=== PATIENT | female | born 1940 | race Caucasian/White ===

== ENCOUNTER → 2016-03-30 | Outpatient (CLI) | payer OTHER | LOC: BMCIMAGING 08:25 | DX: Z12.31 Encounter for screening mammogram for malignant neoplasm of breast (principal) | CPT/HCPCS: G0202 ==

== ENCOUNTER 2017-05-26 01:46 | Inpatient (IN) | payer OTHER ==
[2017-05-26] MEDS ORDERED: NS 1,000 ML IV ONE (01:52)
--- NOTE | 2017-05-26 01:54 | EDPHY ---
H & P Time Seen by Provider: 05/26/17 01:52 HPI/ROS: HPI CHIEF COMPLAINT: Confusion HISTORY OF PRESENT ILLNESS: Patient is a 76-year-old female she presents emergency room by EMS for confusion. According to EMS she contacted her neighbor in her apartment building for help with unclear which need help with. However after the neighbor call 911 with EMS and police arrived to evaluate her the patient was outside putting her sweater over light calling at her son and calling a rock her daughter. She appeared confused and not making sense. No drug intoxication. Patient presents to the emergency room alert and oriented tells me the correct date and her with the president is and what hospital she is at however she started rambling on about her son daughter and her who apparently is . She does live alone in apartment. She states she does not take any medications. She denies any pain anywhere. She denies drug use. Past Medical History: Denies medical history Past Surgical History: Denies surgical history Social History: Lives locally, denies drugs alcohol tobacco. Family History: Noncontributory ROS REVIEW OF SYSTEMS: A comprehensive 10 point review of systems is otherwise negative aside from elements mentioned in the history of present illness. Exam Constitutional appears well nontoxic, frail, triage nursing summary reviewed, vital signs reviewed, awake/alert. Eyes normal conjunctivae and sclera, EOMI, PERRLA. HENT normal inspection, atraumatic, moist mucus membranes, no epistaxis, neck supple/ no meningismus, no raccoon eyes. Respiratory clear to auscultation bilaterally, normal breath sounds, no respiratory distress, no wheezing. Cardiovascular rate normal, regular rhythm, no murmur, no edema, distal pulses normal. Gastrointestinal soft, non-tender, no rebound, no guarding, normal bowel sounds, no distension, no pulsatile mass. Genitourinary no CVA tenderness. Musculoskeletal no midline vertebral tenderness, full range of motion, no calf swelling, no tenderness of extremities, no meningismus, good pulses, neurovascularly intact. Skin pink, warm, & dry, no rash, skin atraumatic. Neurologic rambling sometimes confused awake, alert and oriented x 3, AAOx3, moves all 4 extremities equally, motor intact, sensory intact, CN II-XII intact , normal cerebellar, normal vision, normal speech. Psychiatric normal mood/affect. Heme/Lymph/Immune no lymphadenopathy. Differential Diagnosis: Includes but is not limited to in a particular order infection, electrolyte disturbance, intracranial bleed, drug intoxication, delirium, dementia, hallucination Medical Decision Making: Plan for this patient, will workup for an acute change of mental status, CT head, blood work, troponin EKG. Re-evaluate. Check drug screen. Re-evaluation: 0215AM: Please report this patient lives alone apartment. There are no family contacts. Additionally they report that she just took in overnight flight from [facility] to [place], She had luggage tags on her luggage that confirms this according to police. EKG interpretation by me on record in [employer] system. Impression time of EKG 2:16 a.m., sinus rhythm rate of 83 no significant ischemic changes signs of cardiac arrhythmia. No ST elevation no ST depression no significant T-wave abnormalities CT head without contrast negative for acute traumatic or abnormality specifically no infarct or bleed. Called to me by Dr. Ho. 0329: Blood work reviewed no high white count. She is afebrile. However urinalysis indicates significant UTI. Urine cultures been sent. 1 g Rocephin has been given return emergency room. Plan will be for admission the hospital today for observation given her delirium and altered mental status. Most likely cause of this is her urinary tract infection. I do not feel comfortable discharging her in the middle the night home she lives alone in apartment was found outside of her apartment having hallucinations. Source: Patient, EMS Constitutional: Initial Vital Signs Temperature (C) 36.5 C 05/26/17 01:52 Blood Pressure 178/119 H 05/26/17 01:52 O2 Delivery Mode Room Air Allergies/Adverse Reactions: Sulfa (Sulfonamide Antibiotics) Allergy (Intermediate, Verified 10/06/12 16:54) Home Medications: Medication Instructions Recorded Acyclovir [Zovirax 200 mg (*)] 400 mg PO DAILY 10/06/12 Ascorbic Acid [Vitamin C 500 mg 2,000 mg PO DAILY 05/26/17 (*)] Ergocalciferol [Vitamin D2 (*)] 50,000 unit PO FR 05/26/17 Medical Decision Making - Data Points Laboratory Results: Laboratory Results 05/26/17 01:50 05/26/17 01:50 05/26/17 02:50 Urine Opiates Screen NEGATIVE ng/mL ng/mL (NEGATIVE) Urine Barbiturates NEGATIVE ng/mL ng/mL (NEGATIVE) Ur Phencyclidine Scrn NEGATIVE ng/mL ng/mL (NEGATIVE) Ur Amphetamines Screen NEGATIVE ng/mL ng/mL (NEGATIVE) U Benzodiazepines Scrn NEGATIVE ng/mL ng/mL (NEGATIVE) Urine Cocaine Screen NEGATIVE ng/mL ng/mL (NEGATIVE) U Marijuana (THC) Screen NEGATIVE ng/mL ng/mL (NEGATIVE) Medications Given: Enoxaparin Sodium (Lovenox) 40 mg SC DAILY LARISSA Stop: 11/22/17 08:59 Last Admin: 05/26/17 09:44 Dose: 40 mg Ergocalciferol (Vitamin D2) 50,000 i.unit PO FR LARISSA Stop: 11/22/17 09:29 Last Admin: 05/26/17 09:46 Dose: 50,000 i.unit Sodium Chloride (Ns) 1,000 mls @ 75 mls/hr IV CONT LARISSA Stop: 05/27/17 02:34 Last Admin: 05/26/17 13:21 Dose: 1,000 mls Discontinued Medications Sodium Chloride (Ns) 1,000 mls @ 0 mls/hr IV ONCE ONE; Wide Open PRN Reason: Protocol Stop: 05/26/17 01:53 Last Admin: 05/26/17 02:08 Dose: 1,000 mls Ceftriaxone Sodium/Dextrose (Rocephin 1 Gm (Premix)) 50 mls @ 100 mls/hr IV EDNOW ONE PRN Reason: Protocol Stop: 05/26/17 03:41 Last Admin: 05/26/17 03:31 Dose: 50 mls Departure - Departure Disposition: [facility] Inpatient Acute Clinical Impression: UTI (urinary tract infection) Qualifiers: Urinary tract infection type: acute cystitis Hematuria presence: with hematuria Qualified Code(s): N30.01 - Acute cystitis with hematuria Altered mental status Qualifiers: Altered mental status type: delirium Qualified Code(s): R41.0 - Disorientation , unspecified Condition: Fair
[2017-05-26 02:04] LABS: PLATELET COUNT 244 10^3/uL (150-400)
--- NOTE | 2017-05-26 02:19 | CPEKG ---
Heart Rate: 83 RR Interval: 723 P-R Interval: 156 QRSD Interval: 76 QT Interval: 380 QTC Interval: 447 P [place]: 30 QRS [place]: -25 T Wave [place]: 11 EKG Severity - BORDERLINE ECG - EKG Impression: SINUS RHYTHM EKG Impression: BORDERLINE LEFT AXIS DEVIATION EKG Impression: BORDERLINE T ABNORMALITIES, ANTERIOR LEADS Electronically Signed By: Ciro Velasco 30-May-2017 12:06:25
[2017-05-26] MEDS ORDERED: ONDANSETRON 4 MG/2 ML VIAL IVP PRN (03:38)
[2017-05-26] MEDS ORDERED: ONDANSETRON DISINTEGRATING 4 MG TAB PO PRN (03:38)
--- NOTE | 2017-05-26 04:15 | PDGENHP ---
History and Physical - Chief Complaint AMS - History of Present Illness 76 yo F w/ no significant PMHx presents with AMS. Patient was found today apparently hallucinating that inanimate objects were family members. She was brought to ED by EMS as a result. During my conversation the patient is generally appropriate and does recall being confused earlier. She tells me she lost her last August and has had a really difficult time with losing him after 40 years of marriage. She lives alone and continues to work in [employer] at the [employer]. She denies any symptoms of illlness including fever, dysuria, and abdominal pain. History Information - Allergies/Home Medication List Allergies/Adverse Reactions: Sulfa (Sulfonamide Antibiotics) Allergy (Intermediate, Verified 10/06/12 16:54) Home Medications: Zibrex 10/06/12 [Last Taken Unknown] I have personally reviewed and updated: family history, medical history - Past Medical History arthritis - Surgical History Additional surgical history: Pelvic surgery for pelvic organ prolapse - Family History Positive for: cancer - Social History Smoking Status: Never smoked Review of Systems Review of Systems: ROS: 10pt was reviewed & negative except for what was stated in HPI & below Physical Exam Physical Exam: Temp Pulse Resp BP Pulse Ox 36.5 C 85 18 148/93 H 95 05/26/17 02:29 05/26/17 03:34 05/26/17 03:34 05/26/17 03:34 05/26/17 03:34 Constitutional: no apparent distress, not in pain Eyes: PERRL, EOMI Ears, Nose, Mouth, Throat: moist mucous membranes, no oral mucosal ulcers Cardiovascular: regular rate and rhythym, no murmur, rub, or gallop Gastrointestinal: normoactive bowel sounds, soft, non-tender abdomen Skin: warm, normal color Musculoskeletal: full muscle strength, no muscle tenderness Neurologic: CN II-XII Intact, other (A&Ox2 (name and place)) Psychiatric: interacting appropriately, not anxious Lab Data & Imaging Review 05/26/17 01:50 05/26/17 01:50 WBC 5.38 10^3/uL (3.80-9.50) 05/26/17 01:50 RBC 3.78 10^6/uL (4.18-5.33) L 05/26/17 01:50 Hgb 12.4 g/dL (12.6-16.3) L 05/26/17 01:50 Hct 37.8 % (38.0-47.0) L 05/26/17 01:50 MCV 100.0 fL (81.5-99.8) H 05/26/17 01:50 MCH 32.8 pg (27.9-34.1) 05/26/17 01:50 MCHC 32.8 g/dL (32.4-36.7) 05/26/17 01:50 RDW 14.6 % (11.5-15.2) 05/26/17 01:50 Plt Count 244 10^3/uL (150-400) 05/26/17 01:50 MPV 8.6 fL (8.7-11.7) L 05/26/17 01:50 Neut % (Auto) 61.9 % (39.3-74.2) 05/26/17 01:50 Lymph % (Auto) 19.1 % (15.0-45.0) 05/26/17 01:50 Bent % (Auto) 13.8 % (4.5-13.0) H 05/26/17 01:50 Eos % (Auto) 4.3 % (0.6-7.6) 05/26/17 01:50 Baso % (Auto) 0.7 % (0.3-1.7) 05/26/17 01:50 Nucleat RBC Rel Count 0.0 % (0.0-0.2) 05/26/17 01:50 Absolute Neuts (auto) 3.33 10^3/uL (1.70-6.50) 05/26/17 01:50 Absolute Lymphs (auto) 1.03 10^3/uL (1.00-3.00) 05/26/17 01:50 Absolute Monos (auto) 0.74 10^3/uL (0.30-0.80) 05/26/17 01:50 Absolute Eos (auto) 0.23 10^3/uL (0.03-0.40) 05/26/17 01:50 Absolute Basos (auto) 0.04 10^3/uL (0.02-0.10) 05/26/17 01:50 Absolute Nucleated RBC 0.00 10^3/uL (0-0.01) 05/26/17 01:50 Immature Gran % 0.2 % (0.0-1.1) 05/26/17 01:50 Immature Gran # 0.01 10^3/uL (0.00-0.10) 05/26/17 01:50 Sodium 143 mEq/L (135-145) 05/26/17 01:50 Potassium 4.2 mEq/L (3.5-5.2) 05/26/17 01:50 Chloride 102 mEq/L (97-110) 05/26/17 01:50 Carbon Dioxide 28 mEq/l (22-31) 05/26/17 01:50 Anion Gap 13 mEq/L (8-16) 05/26/17 01:50 BUN 24 mg/dL (7-23) H 05/26/17 01:50 Creatinine 0.8 mg/dL (0.6-1.0) 05/26/17 01:50 Estimated GFR > 60 05/26/17 01:50 Glucose 99 mg/dL (70-100) 05/26/17 01:50 Calcium 9.1 mg/dL (8.5-10.4) 05/26/17 01:50 Troponin I < 0.012 ng/mL (0.000-0.034) 05/26/17 01:50 Urine Color YELLOW 05/26/17 02:50 Urine Appearance MODERATELY TURBID 05/26/17 02:50 Urine pH 6.0 (5.0-7.5) 05/26/17 02:50 Ur Specific [place] 1.021 (1.002-1.030) 05/26/17 02:50 Urine Protein NEGATIVE (NEGATIVE) 05/26/17 02:50 Urine Ketones TRACE (NEGATIVE) H 05/26/17 02:50 Urine Blood 1+ (NEGATIVE) H 05/26/17 02:50 Urine Nitrate POSITIVE (NEGATIVE) H 05/26/17 02:50 Urine Bilirubin NEGATIVE (NEGATIVE) 05/26/17 02:50 Urine Urobilinogen 2.0 EU (0.2-1.0) H 05/26/17 02:50 Ur Leukocyte Esterase NEGATIVE (NEGATIVE) 05/26/17 02:50 Urine RBC 1-3 /hpf (0-3) 05/26/17 02:50 Urine WBC 50-182 /hpf (0-3) H 05/26/17 02:50 Ur Epithelial Cells TRACE /lpf (NONE-1+) 05/26/17 02:50 Urine Bacteria 4+ /hpf (NONE SEEN) H 05/26/17 02:50 Hyaline Casts 1-5 /lpf (0-1) 05/26/17 02:50 Urine Mucus TRACE /lpf (NONE-1+) 05/26/17 02:50 Urine Glucose NEGATIVE (NEGATIVE) 05/26/17 02:50 Imaging Review: CT Prelim: NO BLEED MILD ATROPHY CEREBROVASCULAR ATHEROSCLEROSIS DISCUSSED WITH DR JACKSON AT 0222 Assessment & Plan Assessment: 76 yo F presents with AMS and likely UTI. Plan: 1. Acute encephalopathy - Possibly 2/2 UTI noting nitrate+ UA although patient denies symptoms. There may be some mild underlying dementia. However, patient still works and lives independently quite well. I suspect complicated bereavement may be playing a role as she lost her of 40 years in August. - Admit for observation - UTI tx as below - PT/OT evaluations - Recommend outpatient neurocognitive testing 2. Asymptomatic bacteriuria - Nitrate +, 4+ bacteria, and >50 WBCs on UA. Patient denies symptoms. - CTX 1 g qD - Follow urine cultures, d/c abx if negative Diet - Regular Code - Full Ppx - LMWH Dispo - Admit under observation status
[2017-05-26] MEDS ORDERED: ERGOCALCIFEROL 50,000 I.UNIT CAP PO SCH (09:30)
[2017-05-26] MEDS: ENOXAPARIN 40 MG/0.4 ML SYR SC SCH (09:44)
[2017-05-26] MEDS ORDERED: NS 1,000 ML IV SCH (13:15)
--- NOTE | 2017-05-26 13:20 | HOSPPROG ---
Hospitalist Progress Note Assessment/Plan: 76 yo F presents with AMS, hallucinations, and possible UTI. 1. Acute encephalopathy with Hallucinations -Etiology is unclear: Infectious vs Psych -She reports a hx of prior hallucinations -She has rapid and Tangential speech -She had active hallucinations this morning (though that the chair was her daughter who lives in [place]). No active hallucinations on my exam today 2. Bacteriuria -Denying any urinary sx's -for now cont with Rocephin, await cultures -Give additional IVF 3. Macrocytosis -normal B12, not contributing to encephalopathy -will check folate 4. HTN -not previously diagnosed -for now treat with PRN Hydralazine 5. Right Basilar Lung Nodule on CXR- incidental finding -will wait until encephalopathy better prior to obtaining a CT and further discussion Diet - Regular Code - Full Ppx - LMWH Dispo - change to inpatient. If no improvement of mentation tomorrow, consider psych consult Subjective: still with hallucinations this morning. no cp or sob. no urinary sx. pressured speech. Objective: Vital Signs Temp Pulse Resp BP Pulse Ox 36.7 C 78 18 154/84 H 92 05/26/17 11:14 05/26/17 11:14 05/26/17 11:14 05/26/17 11:14 05/26/17 11:14 05/25/17 05/26/17 05/27/17 05:59 05:59 05:59 Intake Total 1250 Balance 1250 - Physical Exam Constitutional: no apparent distress Eyes: PERRL, EOMI Ears, Nose, Mouth, Throat: moist mucous membranes Cardiovascular: regular rate and rhythym Respiratory: no respiratory distress, no rales or rhonchi, clear to auscultation Gastrointestinal: normoactive bowel sounds, No guarding Genitourinary: no bladder fullness Skin: warm Neurologic: No AAOx3 Psychiatric: encephalopathic, anxious Lymph, Heme, Immunologic: No petechiae ICD10 Worksheet Patient Problems: Problems Problem Status Onset Altered mental status Acute UTI (urinary tract infection) Acute
--- NOTE | 2017-05-26 17:46 | ASMTCMCOM ---
CM Note CM Note Notes: Pt admitted for possible urinary tract infection, altered mental status. Pt brought in by EMS, found to be hallucinating at home. Spoke with ASHLEIGH Kwong - per Elenita, pt lives alone and still works at [employer] in the [employer] department. Call received from Nicolle Wiley [phone], the pt's dghtr and MDPOA. Per Nicolle, she lives in the [place] in [place], which is 7 hrs ahead. Nicolle called for an udpate and to determine best way to provide MDPOA paperwork. Nicolle provided with 's fax number; documents to be faxed or provided by another family member corrine. Per Nicolle, the pt just returned from a 5 week stay in the [place] on Monday evening. Since her return she has been having hallucinations. The dghtr states she called the police several times this morning to do a welfare check on her mother. The police finally went to the pt's home and called EMS. Of note, the pt lost her last August (2016) and lost a son in 2015. Nicolle requesting CM list two additional emergency contacts on pt's behalf: Orestes Solitario (pt's [id number] in [place]) [phone] Zuleyma Spaulding (pt's sister in [place]) [phone] Per Nicolle, staff has permission to discuss pt's health information with both Orestes and Zuleyma Barriga. CM awaiting MDPOA paperwork. Pt's discharge needs remain unclear at this time. PT/OT evals pending. CM will continue to follow. Current Discharge Plan: To be determined Date Signed: 05/26/2017 05:45 PM Electronically Signed By:Belem Morley RN
--- NOTE | 2017-05-26 18:30 | PDMN ---
Medical Necessity Medical necessity: C/M review: Patient meets INPT criteria under [facility] M-300 Urinary tract infection: Acute and persistent encephalopathy with hallucinations of unclear etiology - infectious vs. psychiatric, bacteriuria 4 + urine bacteria and urine WBC 50-182 on urinalysis, possible Urinary tract infection, macrocytosis, await urine culture results, hypertension not previously diagnosed (admit BP 178/119, 05/26/17 07:39 BP 161/86),right basilar lung nodule on CXR- incidental finding requiring 1 L NS IV in ED, IV NS 75 ml/ hr x 1 bag, possible 05/27/2017 Psychiatric consult if no improvement in mentation, ongoing IV Ceftriaxone QD, IV Hydralazine as needed, comorbid history of prior hallucinations. MD anticipates > 2 MN LOS for ongoing med nec for eval and TX of above.
[2017-05-27] MEDS: hydrALAZINE 20 MG/ML VIAL IVP PRN ×2 (03:51→16:12)
[2017-05-27 05:39] LABS: PLATELET COUNT 231 10^3/uL (150-400)
[2017-05-27] MEDS: ASCORBIC ACID 500 MG TAB PO SCH (08:17)
[2017-05-27] MEDS: ACYCLOVIR 200 MG CAP PO SCH (08:18)
[2017-05-27] MEDS: ENOXAPARIN 40 MG/0.4 ML SYR SC SCH (08:19)
--- NOTE | 2017-05-27 15:03 | HOSPPROG ---
Hospitalist Progress Note Assessment/Plan: 76 yo F presents with AMS, hallucinations, and possible UTI. Her last reported visual hallucinations were in the morning of 05/26. She has not had any auditory hallucinations. She wants to go home but has a very poor memory or recollection of the events leading up to the hospital. She also appears to have active cognitive deficits and I am concerned with her safety at home especially as she lives alone. She has no focal neurological deficits 1. Acute encephalopathy with Hallucinations -Etiology is unclear: Infectious vs Psych vs Neuro -She reports a hx of prior hallucinations several years ago but cannot provide further details. -She had rapid and Tangential speech, this seems to be improving - No active hallucinations on my exam today 2. Bacteriuria -Denying any urinary sx's -for now cont with Rocephin, await cultures -Rocephin day 2 today. will treat for 3 days. 3. Macrocytosis -normal B12, not contributing to encephalopathy -will check folate 4. HTN -not previously diagnosed -for now treat with PRN Hydralazine 5. Right Basilar Lung Nodule on CXR- incidental finding -will wait until encephalopathy better prior to obtaining a CT and further discussion Diet - Regular Code - Full Ppx - LMWH Dispo - change to inpatient. obtain cognitive evaluation by Speech Rounded at bedside with nurse, patient, and patients brother in law. All questions and concerns addressed. Subjective: no further hallucinations. still with poor recollection of events. Objective: Vital Signs Temp Pulse Resp BP Pulse Ox 36.6 C 92 14 149/72 H 95 05/27/17 12:14 05/27/17 12:14 05/27/17 12:14 05/27/17 13:51 05/27/17 12:14 Laboratory Results 05/27/17 05:22 05/27/17 05:22 05/26/17 05/27/17 05/28/17 05:59 05:59 05:59 Intake Total 1831 Output Total 1050 Balance 781 - Physical Exam Constitutional: no apparent distress, appears nourished Eyes: PERRL, EOMI Ears, Nose, Mouth, Throat: moist mucous membranes, hearing normal Cardiovascular: regular rate and rhythym, No edema Respiratory: no respiratory distress, no rales or rhonchi, reduced air movement Gastrointestinal: normoactive bowel sounds, soft, non-tender abdomen Genitourinary: no bladder fullness Skin: warm Musculoskeletal: generalized weakness Neurologic: No AAOx3 Psychiatric: interacting appropriately, encephalopathic, anxious Lymph, Heme, Immunologic: No petechiae ICD10 Worksheet Patient Problems: Problems Problem Status Onset Altered mental status Acute UTI (urinary tract infection) Acute
[2017-05-27] MEDS: ACETAMINOPHEN 325 MG TAB PO PRN (21:12)
[2017-05-28] MEDS: ENOXAPARIN 40 MG/0.4 ML SYR SC SCH (08:27)
[2017-05-28] MEDS: ASCORBIC ACID 500 MG TAB PO SCH (08:29)
[2017-05-28] MEDS: ACYCLOVIR 200 MG CAP PO SCH (08:29)
[2017-05-28] MEDS: hydrALAZINE 20 MG/ML VIAL IVP PRN (08:30)
--- NOTE | 2017-05-28 15:39 | ASMTCMCOM ---
CM Note CM Note Notes: Pt is in progress with a cog sd and PT will eval later this PM. PT's DC needs ucnlear at this time. See prev CM note with phone numbers of family contacts. CM to follow. Date Signed: 05/28/2017 03:39 PM Electronically Signed By:Justine Prince LCSW
--- NOTE | 2017-05-28 17:33 | HOSPPROG ---
Hospitalist Progress Note Assessment/Plan: 76 yo F presents with AMS, hallucinations, and possible UTI. Her last reported visual hallucinations were in the morning of 05/26. She has not had any auditory hallucinations. She wants to go home but has a very poor memory or recollection of the events leading up to the hospital. She also appears to have active cognitive deficits and I am concerned with her safety at home especially as she lives alone. She has no focal neurological deficits. Cognitive eval is pending. PT eval is pending. 1. Acute encephalopathy with Hallucinations -Etiology is unclear: Infectious vs Psych vs Neuro -Appears to be clearing and now at baseline. -She reports a hx of prior hallucinations several years ago but cannot provide further details. -She had rapid and Tangential speech, this seems to be improving - No active hallucinations on my exam today -check TSH 2. Bacteriuria -Denying any urinary sx's -will treat with Rocephin for a total of 3 days, today is the last dose 3. Macrocytosis -normal B12, not contributing to encephalopathy -normal folate 4. HTN -not previously diagnosed -Received Hydralazine today, BP is now better. will start Lisinopril in a.m. 5. Right Basilar Lung Nodule on CXR- incidental finding -will wait until encephalopathy better prior to obtaining a CT and further discussion Diet - Regular Code - Full Ppx - LMWH Dispo - cont inpatient. obtain cognitive evaluation by Speech, this is pending. PT eval is pending as well. Rounded at bedside with nurse, patient, and patients sister in law. All questions and concerns addressed. Subjective: no active hallucinations. no cp or sob. no n/v Objective: Vital Signs Temp Pulse Resp BP Pulse Ox 36.5 C 91 15 127/69 H 95 05/28/17 15:29 05/28/17 15:29 05/28/17 15:29 05/28/17 15:29 05/28/17 15:29 Laboratory Results 05/27/17 05:22 05/27/17 05:22 05/27/17 05/28/17 05/29/17 05:59 05:59 05:59 Intake Total 1831 1100 Output Total 1050 Balance 781 1100 - Physical Exam Constitutional: no apparent distress Eyes: PERRL, EOMI Ears, Nose, Mouth, Throat: moist mucous membranes, hearing normal Cardiovascular: regular rate and rhythym, No edema Respiratory: no respiratory distress, no rales or rhonchi Gastrointestinal: normoactive bowel sounds, soft, non-tender abdomen Skin: warm Neurologic: AAOx3 Psychiatric: interacting appropriately, not anxious, not encephalopathic Lymph, Heme, Immunologic: No petechiae ICD10 Worksheet Patient Problems: Problems Problem Status Onset Altered mental status Acute UTI (urinary tract infection) Acute
[2017-05-28] MEDS: ACETAMINOPHEN 325 MG TAB PO PRN (21:24)
--- NOTE | 2017-05-29 08:41 | HOSPPROG ---
Hospitalist Progress Note Assessment/Plan: #Acute on chronic encephalopathy: resolved. Baseline MS per family -MOCA 19/30 c/w cognitive impairment. Not safe for discharge. -Will speak to daughter (CHRISTIANO) about placement -explained to patient with CM that she may need placement #E coli UTI: completed 3 days IV CTX #HTN: Lisinopril #Pulmonary nodule: stable RUL nodule since 2012. Possible RLL nodule. Rec CT outpatient #Diet: regular #Disp: cont inpatient admission for placement. Patient does not have medical capacity and at risk for subsequent harm if discharged home alone Time spent on visit 50 min bedside with pt, discussion with family, CM and therapy Subjective: "I want to go home" Objective: Vital Signs Temp Pulse Resp BP Pulse Ox 36.5 C 76 16 147/86 H 94 05/29/17 07:27 05/29/17 07:27 05/29/17 07:27 05/29/17 07:27 05/29/17 07:27 Laboratory Results 05/27/17 05:22 05/27/17 05:22 05/28/17 05/29/17 05/30/17 05:59 05:59 05:59 Intake Total 1100 450 Balance 1100 450 - Time Spent With Patient Time Spent with Patient: greater than 35 minutes Time Spent with Patient: Greater than 35 minutes spent on this patients care, greater than 50% of time spent counseling, educating, and coordinating care regarding the above mentioned plan. - Physical Exam Constitutional: no apparent distress Eyes: PERRL Ears, Nose, Mouth, Throat: moist mucous membranes Cardiovascular: regular rate and rhythym Respiratory: no respiratory distress Gastrointestinal: normoactive bowel sounds Genitourinary: no bladder fullness Skin: warm Musculoskeletal: full muscle strength Neurologic: AAOx3, CN II-XII Intact Psychiatric: No thought process linear ICD10 Worksheet Patient Problems: Problems Problem Status Onset Altered mental status Acute UTI (urinary tract infection) Acute
[2017-05-29] MEDS: LISINOPRIL 5 MG TAB PO SCH (08:50)
[2017-05-29] MEDS: ACYCLOVIR 200 MG CAP PO SCH (08:50)
[2017-05-29] MEDS: ASCORBIC ACID 500 MG TAB PO SCH (08:50)
[2017-05-29] MEDS: ENOXAPARIN 40 MG/0.4 ML SYR SC SCH (08:52)
--- NOTE | 2017-05-29 15:21 | ASMTCMCOM ---
CM Note CM Note Notes: Chart reviewed. Per speech patient cognitively impaired and not able to safely discharge independently. Spoke with her [place] Her mom had just been there for a 5 week visit. During that time Nicolle saw what she referred to as forgetful behaviour. The patient at this point is likely going to need at least SNF rehab. Referrals placed via allscripts. Plan: Dcd tp SNF/rehab when medically appropriate. Date Signed: 05/29/2017 03:20 PM Electronically Signed By:Belinda Cardoso RN
[2017-05-29] MEDS: ACETAMINOPHEN 325 MG TAB PO PRN (20:02)
[2017-05-30] MEDS: LISINOPRIL 5 MG TAB PO SCH (08:50)
[2017-05-30] MEDS: ENOXAPARIN 40 MG/0.4 ML SYR SC SCH (08:51)
[2017-05-30] MEDS: ASCORBIC ACID 500 MG TAB PO SCH (08:51)
[2017-05-30] MEDS: ACYCLOVIR 200 MG CAP PO SCH (08:51)
--- NOTE | 2017-05-30 12:48 | HOSPPROG ---
Hospitalist Progress Note Assessment/Plan: #Acute on chronic encephalopathy: -patient at baseline per family -MOCA . Patient is now agreeable to placement. Daughter (MDPOA) and brother -n-law assisting with placement - #E coli UTI: completed 3 days IV CTX #HTN: Lisinopril #Pulmonary nodule: stable RUL nodule since 2012. Possible RLL nodule. Rec CT outpatient #Diet: regular #Disp: cont inpatient admission for placement. Patient does not have medical capacity and at risk for subsequent harm if discharged home alone Subjective: no cough. Ambulating without issue Objective: Vital Signs Temp Pulse Resp BP Pulse Ox 36.7 C 76 14 145/80 H 92 05/30/17 07:49 05/30/17 07:49 05/30/17 07:49 05/30/17 07:49 05/30/17 07:49 Laboratory Results 05/27/17 05:22 05/27/17 05:22 05/29/17 05/30/17 05/31/17 05:59 05:59 05:59 Intake Total 450 700 Balance 450 700 - Physical Exam Constitutional: no apparent distress Eyes: PERRL Ears, Nose, Mouth, Throat: moist mucous membranes Cardiovascular: regular rate and rhythym Respiratory: no respiratory distress Gastrointestinal: normoactive bowel sounds, soft, non-tender abdomen Genitourinary: no bladder fullness, No kelley in urethra Neurologic: CN II-XII Intact Psychiatric: interacting appropriately, anxious, poor insight, other (difficult to keep on point) ICD10 Worksheet Patient Problems: Problems Problem Status Onset Altered mental status Acute UTI (urinary tract infection) Acute
--- NOTE | 2017-05-30 15:22 | ASMTCMCOM ---
CM Note CM Note Notes: Ashly from [facility] here today to see patient and [id number] Perry. Also,I received a phone call from patient's daughter Nicolle. I gave her some updates on patient's diagnosis and medications and ultimately transferred her phone call to Ayana, patient's RN. Per Nicolle, they have selected [facility] for SNF placement. I sent [facility] updated progress notes. Case Management will follow. Date Signed: 05/30/2017 03:21 PM Electronically Signed By:Jordyn Herbert RN
[2017-05-30] MEDS: ACETAMINOPHEN 325 MG TAB PO PRN (20:39)
[2017-05-31] MEDS: ACYCLOVIR 200 MG CAP PO SCH (10:13)
[2017-05-31] MEDS: ENOXAPARIN 40 MG/0.4 ML SYR SC SCH (10:13)
[2017-05-31] MEDS: ASCORBIC ACID 500 MG TAB PO SCH (10:13)
[2017-05-31 10:18] VITALS: BP 94/51
[2017-05-31] MEDS: LISINOPRIL 5 MG TAB PO SCH (10:18)
--- NOTE | 2017-05-31 13:21 | HOSPPROG ---
Hospitalist Progress Note Assessment/Plan: 76 yo F admitted w hallucinations, now resolved Acute on chronic encephalopathy: -patient at baseline per family -MOCA . Patient is now agreeable to placement. Daughter (MDPOA) and brother -n-law assisting with placement E coli UTI: completed 3 days IV CTX HTN: Lisinopril Pulmonary nodule: stable RUL nodule since 2012. Possible RLL nodule. Rec CT outpatient Diet: regular Dispo: to snf when bed available Subjective: anxious for dc to SNF Objective: Vital Signs Temp Pulse Resp BP Pulse Ox 36.4 C 87 18 94/51 L 96 05/31/17 07:24 05/31/17 10:17 05/31/17 07:24 05/31/17 10:18 05/31/17 07:24 Laboratory Results 05/27/17 05:22 05/27/17 05:22 05/30/17 05/31/17 06/01/17 05:59 05:59 05:59 Intake Total 700 300 Balance 700 300 ICD10 Worksheet Patient Problems: Problems Problem Status Onset Altered mental status Acute UTI (urinary tract infection) Acute
--- NOTE | 2017-05-31 14:02 | PDIAF ---
- Diagnosis Diagnosis: UTI w encephalopathy Code Status: Full Code - Medication Management Discharge Medications: Medications to Continue on Transfer Acyclovir [Zovirax 200 mg (*)] 400 mg PO DAILY 10/06/12 [Last Taken Unknown] Ascorbic Acid [Vitamin C 500 mg (*)] 2,000 mg PO DAILY 05/26/17 [Last Taken Unknown] Ergocalciferol [Vitamin D2 (*)] 50,000 unit PO FR 05/26/17 [Last Taken Unknown] Lisinopril [Zestril 5 mg (*)] 5 mg PO DAILY tab 05/31/17 [Last Taken Unknown] Discharge Medications: Refer to the Discharge Home Medication list for PRN reason. - Orders Services needed: Registered Nurse, Certified Telemedicine Physician, Physical Therapy, Occupational Therapy - Follow Up Care Current Providers and Referrals: NONE *PRIMARY CARE P,. [Unknown] - As per Instructions
--- NOTE | 2017-05-31 14:40 | ASMTCMCOM ---
CM Note CM Note Notes: Pt ready for DC today. Final orders faxed to [facility]. RN gave report. Pt's brother in law will drive pt to [facility]. Date Signed: 05/31/2017 02:39 PM Electronically Signed By:Justine Prince LCSW
--- NOTE | 2017-05-31 14:50 | ASMTLACE ---
LACE Length of stay for Answers: 4-6 days current admission Acuity / Level of Answers: Yes Care: Did the patient have an inpatient admission? Comorbidities - select Answers: Other Notes: UTI, dementia all that apply # of Emergency department Answers: 1-2 visits in the last 6 months Score: 9 Date Signed: 05/31/2017 02:49 PM Electronically Signed By:Justine Prince LCSW
--- NOTE | 2017-05-31 16:37 | GDS ---
[f rep st] DISCHARGE SUMMARY DISCHARGE DIAGNOSES: 1. Encephalopathy. 2. Urinary tract infection. Please see admission history and physical by Dr. Kiel Chong. The patient presented with vi sual hallucinations. Initial evaluation was notable for normal electrolytes, normal volume status, n egative troponin, and a positive urinalysis, which ultimately grew out E coli, consistent with urinar y tract infection. Her mental status cleared. Seen by PT and OT and felt appropriate for SNF. She was discharged there today. She completed 3 days of antibiotics for an otherwise uncomplicated urina ry tract infection. /[id number]/MODL
--- NOTE | 2017-06-02 10:03 | ASDISCHSUM ---
Discharge Information Plan Status:Has needs-TBD Medically Cleared to Leave: Discharge Date:05/31/2017 03:43 PM CM D/C Disposition: ADT D/C Disposition:Other Rehab, Not [place] Projected Discharge Date:05/31/2017 11:00 AM Transportation at D/C: Discharge Delay Reason: Follow-Up Date:05/31/2017 11:00 AM Discharge Slot: Final Diagnosis: Placement Information Referral Type:*Intermediate/SNF Referral ID:[id number] Provider Name:[facility] Address 1:[address] Address 2: City:[place] Selection Factors: State:[place] Patient Contact Information Contact Name:ZELDA Relationship:Daughter Address:[address] Work Phone: [facility] Alternate Phone: State/Zip Code:[place] [address] Email: Financial Information Financial Class:[facility] Primary Plan Desc:[facility] Primary Plan Number:[id number] Secondary Plan Desc:MEDICARE INPATIENT Secondary Plan Number:[id number] Assessment Information LACE LACE Length of stay for Answers: 4-6 days current admission Acuity / Level of Answers: Yes Care: Did the patient have an inpatient admission? Comorbidities - select Answers: Other Notes: UTI, dementia all that apply # of Emergency department Answers: 1-2 visits in the last 6 months Score: 9 Date Signed: 05/31/2017 02:49 PM Electronically Signed By:Justine Prince LCSW [facility] CM Progress Note CM Note CM Note Notes: Pt admitted for possible urinary tract infection, altered mental status. Pt brought in by EMS, found to be hallucinating at home. Spoke with ASHLEIGH Kwong - per Elenita, pt lives alone and still works at [employer] in the [employer] department. Call received from Nicolle Wiley [phone], the pt's dghtr and MDP. Per Nicolle, she lives in the [place] in [place], which is 7 hrs ahead. Nicolle called for an udpate and to determine best way to provide MDPOA paperwork. Nicolle provided with 's fax number; documents to be faxed or provided by another family member corrine. Per Nicolle, the pt just returned from a 5 week stay in the [place] on Monday evening. Since her return she has been having hallucinations. The dghtr states she called the police several times this morning to do a welfare check on her mother. The police finally went to the pt's home and called EMS. Of note, the pt lost her last August (2016) and lost a son in 2015. Nicolle requesting CM list two additional emergency contacts on pt's behalf: Orestes Solitario (pt's uzbgbhn-sl-tpo in [place]) [phone] Zuleyma Spaulding (pt's sister in [place]) [phone] Per Nicolle, staff has permission to discuss pt's health information with both Orestes and Zuleyma Barriga. CM awaiting MDPOA paperwork. Pt's discharge needs remain unclear at this time. PT/OT evals pending. CM will continue to follow. Current Discharge Plan: To be determined Date Signed: 05/26/2017 05:45 PM Electronically Signed By:Belem Morley RN [facility] Progress Note CM Note CM Note Notes: Pt is in progress with a cog sd and PT will eval later this PM. PT's DC needs ucnlear at this time. See prev CM note with phone numbers of family contacts. CM to follow. Date Signed: 05/28/2017 03:39 PM Electronically Signed By:Justine Prince LCSW [facility] CM Progress Note CM Note CM Note Notes: Chart reviewed. Per speech patient cognitively impaired and not able to safely discharge independently. Spoke with her [place] Her mom had just been there for a 5 week visit. During that time Nicolle saw what she referred to as forgetful behaviour. The patient at this point is likely going to need at least SNF rehab. Referrals placed via allscripts. Plan: Dcd tp SNF/rehab when medically appropriate. Date Signed: 05/29/2017 03:20 PM Electronically Signed By:Belinda Cardoso RN [facility] CM Progress Note CM Note CM Note Notes: Ashly from [facility] here today to see patient and [id number] Perry. Also,I received a phone call from patient's daughter Nicolle. I gave her some updates on patient's diagnosis and medications and ultimately transferred her phone call to Ayana patient's RN. Per Nicolle, they have selected [facility] for SNF placement. I sent [facility] updated progress notes. Case Management will follow. Date Signed: 05/30/2017 03:21 PM Electronically Signed By:Jordyn Herbert RN [facility] CM Progress Note CM Note CM Note Notes: Pt ready for DC today. Final orders faxed to [facility]. RN gave report. Pt's brother in law will drive pt to [facility]. Date Signed: 05/31/2017 02:39 PM Electronically Signed By:Jsutine Prince LCSW Intervention Information Intervention Type:*IM-Signed Date of Service:05/31/2017 02:45 PM Patient Type:Inpatient Staff Member:Maggie Emanuel Hours: Discipline: Severity: Comment:
== END 2017-05-31 15:43 | DRG 689 ==
LOC: EDUNIT# → F1N 05:19 → OBSVTOIN 13:22
PROVIDERS: ADMIT Student in an Organized Health Care Education/Training Program; ATTEND Student in an Organized Health Care Education/Training Program
DX: N39.0 Urinary tract infection, site not specified (principal); B96.20 Unspecified Escherichia coli [E. coli] as the cause of diseases classified elsewhere; G93.40 Encephalopathy, unspecified
CPT/HCPCS: 80307; 82607-90; 92507-GN; 92523-GN; 96374; 97116-GP; 97161-GP; 97165-GO; 97530-GO; 97535-GO; G0480; G0515-GN; G8978-GP-CK; G8979-GP-CI; G8987-GO-CJ; G8988-GO-CI; G9168-GN-CK; G9169-GN-CI; J0360; J0696; J1650

== ENCOUNTER → 2017-06-21 | Outpatient (CLI) | payer OTHER | LOC: BMCIMAGING 08:19 | PROVIDERS: ATTEND Family Medicine | DX: Z12.31 Encounter for screening mammogram for malignant neoplasm of breast (principal) ==

== ENCOUNTER → 2017-06-30 | Outpatient (CLI) | payer OTHER | LOC: FIMAGING 19:03 | PROVIDERS: ATTEND Family Medicine | DX: M48.56XA Collapsed vertebra, not elsewhere classified, lumbar region, initial encounter for fracture (principal); M43.16 Spondylolisthesis, lumbar region; M41.86 Other forms of scoliosis, lumbar region; G31.84 Mild cognitive impairment of uncertain or unknown etiology ==

== ENCOUNTER → 2017-07-06 | Outpatient (CLI) | payer OTHER | LOC: FIMAGING 10:22 | PROVIDERS: ATTEND Family Medicine | DX: Z13.820 Encounter for screening for osteoporosis (principal); Z78.0 Asymptomatic menopausal state; M81.0 Age-related osteoporosis without current pathological fracture ==

== ENCOUNTER → 2017-09-06 | Outpatient (CLI) | payer OTHER | LOC: FIMAGING 11:47 | PROVIDERS: ATTEND Family Medicine | DX: M79.672 Pain in left foot (principal); S82.115A Nondisplaced fracture of left tibial spine, initial encounter for closed fracture; Z87.81 Personal history of (healed) traumatic fracture ==

== ENCOUNTER → 2017-10-20 | Outpatient (CLI) | payer OTHER | LOC: FIMAGING 10:13 | PROVIDERS: ATTEND Physician Assistant | DX: S82.102 Unspecified fracture of upper end of left tibia (principal) ==

== ENCOUNTER 2018-04-05 10:36 | Inpatient (IN) | payer OTHER ==
--- NOTE | 2018-04-05 10:56 | EDPHY ---
General Time Seen by Provider: 04/05/18 10:45 Narrative: CLINICAL IMPRESSION: Acute, closed, displaced left femur fracture ASSESSMENT/PLAN: Very pleasant 77-year-old female presents to the emergency department after a ground level fall today. Patient did not hit her head, reports no headache, altered mental status, chest pain or shortness of breath. She has obvious swelling and deformity to left knee with radiology findings consistent for a closed, comminuted, displaced distal femur fracture. She has intact distal neurovascular exam. Patient received IV analgesics in the leg was placed in a straight leg knee immobilizer. I discussed with Dr. Chen who will plan to take the patient to the operating room later today. She was kept NPO. Routine preop labs EKG and chest x-ray ordered. Hospitalist consult requested. Pain controlled well in the ED. Patient admitted pending surgery. Discussed with Dr. Hall. DIFFERENTIAL DX: Differential includes but not limited to acute fracture, strain/sprain, joint dislocation, soft tissue contusion ED PROCEDURES: Procedure: Splint placement. A straight leg knee immobilizer splint was applied to left leg by senior technical support analyst, supervised by myself. After application of the splint I returned and re- examined the patient. The splint was adequately immobilizing the joint and distal to the splint the patient's circulation and sensation was intact. ED COURSE: 10:45 a.m.:. Patient seen and assessed by myself at EMS arrival. 11:00 a.m.: Preliminary review of x-ray show a displaced comminuted distal femur fracture. Patient last ate at 10:00 a.m., eggs an old male. I instructed her to keep NPO. IV will be placed. She is requesting analgesics. I will contact Orthopedics, Dr Chen paged. Probable surgical intervention later today. Will apply knee immobilizer when pain controlled. 11:30 a.m.. Case discussed with Dr. Gustavo. He will admit the patient primarily. Knee was placed in a straight leg knee immobilizer by myself. Patient tolerated well. Remains neurovascularly intact. Remain NPO for surgery probable 4-5 p.m. Tonight. CHIEF COMPLAINT: Acute left knee pain HPI: 77-year-old female presents to the emergency department from [facility] by ambulance after she had a ground level fall this morning. Patient reports she was making the bed when she slipped and fell on her left knee. She did not strike the left hip, chest, head, and reports no headache, dizziness, vertigo, chest wall pain or any other injury. She reports a prior left patellar fracture, last fall 2017, that did not require surgical intervention and was followed by Ortho in [place]. She normally does not ambulate with a cane or walker. She is unable to bear weight on the left leg. She reports no left hip, lower leg, ankle or foot pain. No reported loss of sensation to the lower leg. She does have a history of osteoporosis. She is not anticoagulated. 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 Neurological: No sensory loss or weakness. PHYSICAL EXAM: General Appearance: Alert, oriented, appears uncomfortable, appropriate for age , cooperative, NAD, well hydrated, non-toxic appearing, hypertensive, no hypoxia. Cardiac: Regular rate and rhythm, no murmurs or gallops Respiratory: Clear to auscultation bilaterally, no wheezes rhonchi or rales. No reproducible chest wall or rib pain. Neurological: Alert and oriented x 3, normal sensation and strength of extremities Skin: Warm, dry, no rashes, no nodules on palpation. Musculoskeletal: Obvious swelling and deformity noted to left knee which is held in slight flexion and external rotation. Superficial abrasion noted to the superior aspect of the distal knee with no evidence of open fracture. Pedal and posterior tibialis pulses intact. Normal sensation to lower extremity. No reproducible pain, swelling or deformity to ankle, tib-fib, or hip. MEDICAL DECISION MAKING: Patient was seen independently. Secondary supervising physician at time of evaluation was Dr. Hall. Diagnosis: Closed, displaced, comminuted distal left femur fracture. New, requires workup Summary: See assessment and plan for summary of ED visit Independent visualization of images, tracing, or specimens yes. Discussed patient with another provider: Dr. Hall, Dr. Chen, hospitalist Patient Progress: Stable for admission. - Diagnostics Imaging Results: Imaging Impressions Knee X-Ray 04/05/18 10:43 Impression: Comminuted intra-articular fracture of the distal femur with a vertical fracture extending from the metaphysis to the articular surface of the distal femur, with posterior displacement and angulation. Chest X-Ray 04/05/18 11:08 Impression: No acute findings in the chest. - History Smoking Status: Never smoked - Objective Vital Signs: Initial Vital Signs Temperature (C) 36.5 C 04/05/18 10:43 Heart Rate 70 04/05/18 10:43 Respiratory Rate 18 04/05/18 10:43 Blood Pressure 159/99 H 04/05/18 10:43 O2 Sat (%) 97 04/05/18 10:43 O2 Delivery Mode Room Air Allergies/Adverse Reactions: Sulfa (Sulfonamide Antibiotics) Allergy (Intermediate, Verified 04/05/18 10:43) Home Medications: Medication Instructions Recorded Acyclovir [Zovirax 200 mg (*)] 400 mg PO DAILY 10/06/12 Alendronate Sodium [Fosamax 70 MG 70 mg PO MO@0700 04/05/18 (*)] Ascorbic Acid [Vitamin C 500 mg 2,000 mg PO DAILY 04/05/18 (*)] Cholecalciferol Vit D3 [Vitamin D3 50,000 unit PO FR 04/05/18 (*)] Herbals/Supplements -Info Only 1 ea PO DAILY 04/05/18 Loperamide HCl [Imodium 2 mg (*)] 2 mg PO PRN PRN 04/05/18 Potassium Cl [Klor-Con 20 meq (*)] 20 meq PO DAILY 04/05/18 Sertraline HCl [Zoloft 50mg (*)] 50 mg PO HS 04/05/18 Laboratory Results: Laboratory Results 04/05/18 11:25 04/05/18 11:25 04/05/18 04/05/18 11:25 11:25 WBC 7.09 10^3/uL 10^3/uL (3.80-9.50) RBC 3.83 10^6/uL L 10^6/uL (4.18-5.33) Hgb 12.6 g/dL g/dL (12.6-16.3) Hct 39.2 % % (38.0-47.0) MCV 102.3 fL H fL (81.5-99.8) MCH 32.9 pg pg (27.9-34.1) MCHC 32.1 g/dL L g/dL (32.4-36.7) RDW 13.9 % % (11.5-15.2) Plt Count 276 10^3/uL 10^3/uL (150-400) MPV 8.6 fL L fL (8.7-11.7) Neut % (Auto) 80.2 % H % (39.3-74.2) Lymph % (Auto) 11.1 % L % (15.0-45.0) [place] % (Auto) 7.3 % % (4.5-13.0) Eos % (Auto) 0.8 % % (0.6-7.6) Baso % (Auto) 0.3 % % (0.3-1.7) Nucleat RBC Rel Count 0.0 % % (0.0-0.2) Absolute Neuts (auto) 5.68 10^3/uL 10^3/uL (1.70-6.50) Absolute Lymphs (auto) 0.79 10^3/uL L 10^3/uL (1.00-3.00) Absolute Monos (auto) 0.52 10^3/uL 10^3/uL (0.30-0.80) Absolute Eos (auto) 0.06 10^3/uL 10^3/uL (0.03-0.40) Absolute Basos (auto) 0.02 10^3/uL 10^3/uL (0.02-0.10) Absolute Nucleated RBC 0.00 10^3/uL 10^3/uL (0-0.01) Immature Gran % 0.3 % % (0.0-1.1) Immature Gran # 0.02 10^3/uL 10^3/uL (0.00-0.10) Sodium 134 mEq/L L mEq/L (135-145) Potassium 4.5 mEq/L mEq/L (3.5-5.2) Chloride 106 mEq/L mEq/L (97-110) Carbon Dioxide 22 mEq/l mEq/l (22-31) Anion Gap 6 mEq/L mEq/L (6-14) BUN 18 mg/dL mg/dL (7-23) Creatinine 0.7 mg/dL mg/dL (0.6-1.0) Estimated GFR > 60 Glucose 91 mg/dL mg/dL (70-100) Calcium 8.6 mg/dL mg/dL (8.5-10.4) Medications Given: Hydromorphone HCl (Dilaudid) 0.2 - 0.4 mg IVP Q1HR PRN PRN Reason: Pain, Severe Unable to Take PO Stop: 04/15/18 14:08 Last Admin: 04/05/18 15:21 Dose: 0.4 mg Ondansetron HCl (Zofran) 4 mg IVP Q4HRS PRN PRN Reason: Nausea/Vomiting, Can't Take PO Stop: 10/02/18 15:47 Last Admin: 04/05/18 15:54 Dose: 4 mg Discontinued Medications Hydromorphone HCl (Dilaudid) 0.5 mg IVP EDNOW ONE Stop: 04/05/18 11:06 Last Admin: 04/05/18 11:30 Dose: 0.5 mg Hydromorphone HCl (Dilaudid) 0.5 mg IVP EDNOW ONE Stop: 04/05/18 11:34 Last Admin: 04/05/18 11:34 Dose: 0.5 mg Sodium Chloride (Ns) 1,000 mls @ 0 mls/hr IV EDNOW ONE; Wide Open PRN Reason: Protocol Stop: 04/05/18 11:48 Last Admin: 04/05/18 11:55 Dose: 1,000 mls Departure - Departure Disposition: [facility] Inpatient Acute Clinical Impression: Femur fracture, left Qualifiers: Encounter type: initial encounter Femur location: distal Fracture type: closed Fracture morphology: other fracture Qualified Code(s): S72.492A - Other fracture of lower end of left femur, initial encounter for closed fracture Condition: Good
[2018-04-05] MEDS ORDERED: HYDROmorphONE/DILAUDID 2 MG/ML INJ IVP ONE ×2 (11:05→11:33)
[2018-04-05 11:42] LABS: PLATELET COUNT 276 10^3/uL (150-400)
[2018-04-05] MEDS ORDERED: NS 1,000 ML IV ONE (11:47)
[2018-04-05] MEDS: HYDROmorphONE/DILAUDID 1 MG/ML INJ IVP PRN ×3 (14:18→17:33)
--- NOTE | 2018-04-05 15:43 | PDMN ---
Medical Necessity Medical necessity: MC yr old F pt presents after a fall -unable to bear weight- found to have displaced comminuted distal femur fx- ( sgy pend- poss.- S470 femur fx , shaft internal fixation- 2 days )
[2018-04-05] MEDS ORDERED: ONDANSETRON 4 MG/2 ML VIAL IVP PRN ×3 (15:48→21:44)
[2018-04-05] MEDS ORDERED: HYDROmorphONE/DILAUDID 2 MG/ML INJ ONE (17:30)
--- NOTE | 2018-04-05 17:33 | PDANEPAE ---
ANE History of Present Illness L distal femur ORIF ANE Past Medical History - Pulmonary History Hx Oxygen in Use at Home: No Hx Sleep Apnea: No Sleep Apnea Screening Result - Last Documented: Negative - Endocrine History Hx Diabetes: No - Other Health History Other Health History: Erythema multiforme - infection related ANE Review of Systems Review of systems is: negative Review of Systems: - Exercise capacity Exercise capacity: >=4 METS ANE Patient History - Allergies Allergies/Adverse Reactions: Sulfa (Sulfonamide Antibiotics) Allergy (Intermediate, Verified 04/05/18 10:43) - Home Medications Home medications: home medication list seen and reviewed Home Medications: Acyclovir [Zovirax 200 mg (*)] 400 mg PO DAILY 10/06/12 [Last Taken 04/05/18] Alendronate Sodium [Fosamax 70 MG (*)] 70 mg PO MO@0700 04/05/18 [Last Taken ] Ascorbic Acid [Vitamin C 500 mg (*)] 2,000 mg PO DAILY 04/05/18 [Last Taken ] Cholecalciferol Vit D3 [Vitamin D3 (*)] 50,000 unit PO FR 04/05/18 [Last Taken 03/30/17] Herbals/Supplements -Info Only 1 ea PO DAILY 04/05/18 [Last Taken Unknown] Loperamide HCl [Imodium 2 mg (*)] 2 mg PO PRN PRN 04/05/18 [Last Taken Unknown] Potassium Cl [Klor-Con 20 meq (*)] 20 meq PO DAILY 04/05/18 [Last Taken 04/05/18 ] Sertraline HCl [Zoloft 50mg (*)] 50 mg PO HS 04/05/18 [Last Taken 04/04/18] - NPO status NPO Since - Liquids (Date): 04/05/18 NPO Since - Liquids (Time): 10:00 NPO Since - Solids (Date): 04/05/18 NPO Since - Solids (Time): 10:00 - Anes Hx Anes Hx: no prior problems - Smoking Hx Smoking Status: Never smoked - Family Anes Hx Family Anes Hx: none ANE Labs/Vital Signs - Labs Result Diagrams: 04/05/18 11:25 04/05/18 11:25 - Vital Signs Vital Signs: reviewed preoperatively; see RN documention for details Blood Pressure: 115/112 Heart Rate: 93 Respiratory Rate: 15 O2 Sat (%): 98 Height: 172.72 cm Weight: 63.5 kg ANE Physical Exam - Airway Neck exam: FROM Mallampati Score: Class 3 Mouth exam: normal dental/mouth exam - Pulmonary Pulmonary: no respiratory distress - Cardiovascular Cardiovascular: regular rate and rhythym - ASA Status ASA Status: II ANE Anesthesia Plan Anesthesia Plan: GA w LMA
[2018-04-05] MEDS ORDERED: BACITRACIN 50,000 UNITS/10 ML SYR IRR ONE (17:54)
[2018-04-05] MEDS ORDERED: POLYMYXIN B SULFATE 500,000 UNIT/10 ML SYR IRR ONE (17:54)
[2018-04-05] MEDS ORDERED: BUPIVACAINE 0.5% 30 ML SDV ONE (17:54)
[2018-04-05] MEDS ORDERED: DEXAMETHASONE 4 MG/ML VIAL ONE (18:05)
[2018-04-05] MEDS ORDERED: LIDOCAINE 2% 100 MG/5 ML SYR ONE (18:05)
[2018-04-05] MEDS ORDERED: ONDANSETRON 4 MG/2 ML VIAL ONE (18:05)
[2018-04-05] MEDS ORDERED: PROPOFOL 200 MG/20 ML VIAL ONE (18:06)
[2018-04-05] MEDS ORDERED: fentaNYL 100 MCG/2 ML INJ ONE ×2 (18:06→20:51)
--- NOTE | 2018-04-05 18:12 | PDCONSULT ---
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 She says that she tripped and stepped wrong with her leg foot while making her bed this morning. She landed on her left knee and had immediate severe pain. She was unable to bear weight on her left knee and so came to the emergency room. Denied hitting her head or any loss of consciousness. She denied any prodromal symptoms or syncopal like symptoms. She does not have any numbness or tingling in her left leg and denies any weakness. She did note that she had a previous patellar fracture that did not require surgical intervention. Past medical history Osteoporosis Depression Erythema multiform HSV Past surgical history Hysterectomy Social history Does not smoke does not drink does not use drugs Family history Non pertinent Medication allergies Sulfa Current medications Acyclovir 40 mg daily Alendronate Vitamin-D 25110 units Imodium as needed Zoloft Current vitals Blood pressure 139/78 Heart rate 81 Respirations 18 Oxygen saturation 90% on room air Oral temperature 36.8 degrees C Examination General-well nourished white female in no acute distress HEENT-pupils equal round reactive to light and accommodation, mucous membranes moist pink and acyanotic Lungs-clear to auscultation bilaterally Cardiovascular-regular rhythm and rate with no murmurs rubs or gallops Abdomen-soft nondistended nontender in all 4 quadrants positive bowel sounds no guarding or rebound no organomegaly Extremities no clubbing cyanosis edema or calf pain, she has swelling and pain with any manipulation of her left knee Skin-no rashes or ecchymosis Neuro-cranial nerves 2-12 grossly intact no focal neurological deficits Psych-mood and affect are appropriate Assessment plan 77-year-old female with past medical history of osteoporosis depression admitted after suffering a mechanical fall with a fracture of her distal left femur Left distal femur fracture- management per Orthopedic surgery Osteoporosis- on bisphosphonate at home. Depression- on sertraline for this. Should be fine to continue hsv- on acyclovir 400 mg daily. continue ppx-SCDs, heparin per Ortho Fluids- would give gentle fluids after midnight Electrolytes- within normal limits Nutrition- regular diet with NPO after midnight Cor -full Dispo- inpatient for left distal femur fracture
[2018-04-05] MEDS ORDERED: ROCURONIUM 50 MG/5 ML VIAL ONE ×2 (18:39→19:54)
--- NOTE | 2018-04-05 18:43 | PDHPUP ---
History & Physical Update H&P update statement: This history and physical update is based on an assessment of the patient which was completed after admission or registration (within 24 hours), but prior to the surgery/procedure. H&P update: H&P reviewed & patient examined, no change in patient's condition since H&P completed
--- NOTE | 2018-04-05 18:44 | PDGENHP ---
History & Physical Chief Complaint: l thigh pain History of Present Illness: fall at home. pain and deformity of thigh Pertinent Past, Social, Family History: osteoporosis Relevant Physical Exam: foot NVI. pain to movement. xray = comminuted distal femur fracture with poor bone quality Cardiorespiratory Assessment: cta. rrr. soft and nt
[2018-04-05] MEDS ORDERED: ceFAZolin 1 GM VIAL ONE ×2 (19:00)
[2018-04-05] MEDS ORDERED: SUGAMMADEX SODIUM 200 MG/2 ML VIAL IVP ONE (21:18)
[2018-04-05] MEDS ORDERED: LACTULOSE 20 GM/30 ML UDCUP PO PRN (21:28)
[2018-04-05] MEDS ORDERED: MAGNESIUM HYDROXIDE 30 ML UDCUP PO PRN (21:28)
[2018-04-05] MEDS ORDERED: CYCLOBENZAPRINE 10 MG TAB PO PRN (21:28)
[2018-04-05] MEDS ORDERED: oxyCODONE IR 5 MG TAB PO PRN ×2 (21:28→21:44)
[2018-04-05] MEDS ORDERED: DIPHENOXYLATE/ATROPINE LOMOTIL 1 TAB PO PRN (21:28)
[2018-04-05] MEDS ORDERED: TEMAZEPAM 15 MG CAP PO PRN (21:28)
[2018-04-05] MEDS ORDERED: ONDANSETRON DISINTEGRATING 4 MG TAB PO PRN (21:28)
[2018-04-05] MEDS ORDERED: PROMETHAZINE HCL 25 MG/ML INJ IVP PRN (21:28)
[2018-04-05] MEDS ORDERED: TAPENTADOL HCL 50 MG TAB PO PRN (21:28)
[2018-04-05] MEDS ORDERED: diphenhydrAMINE 25 MG CAP PO PRN (21:28)
[2018-04-05] MEDS ORDERED: PROMETHAZINE HCL 25 MG SUPPR PR PRN (21:28)
[2018-04-05] MEDS ORDERED: BISACODYL 10 MG SUPP PR PRN (21:28)
[2018-04-05] MEDS ORDERED: POLYETHYLENE GLYCOL 3350 17 GM PKT PO PRN (21:28)
[2018-04-05] MEDS ORDERED: METOCLOPRAMIDE 10 MG/2 ML VIAL IVP PRN (21:28)
--- NOTE | 2018-04-05 21:28 | POSTOPPROG ---
Post Op Note Date of Operation: 04/05/18 Surgeon: Margarita Chen Tiger Machine Operator: coltrain Anesthesia: GET(General Endotracheal) Pre-op Diagnosis: l distal femur fx Procedure: orif l dist femur with fluoro Inf/Abcess present in the surg proc area at time of surgery?: No Depth: Deep Incisional (Fascial) EBL: 100-500
[2018-04-05] MEDS ORDERED: LR 1,000 ML IV SCH (21:30)
[2018-04-05] MEDS ORDERED: LOPERAMIDE HCL 2 MG CAP PO PRN (21:32)
[2018-04-05] MEDS ORDERED: LABETALOL HCL 20 MG/4 ML INJ IVP PRN (21:44)
[2018-04-05] MEDS ORDERED: NALOXONE HCL 0.4 MG/ML INJ IVP PRN (21:44)
[2018-04-05] MEDS ORDERED: HYDROmorphONE/DILAUDID 2 MG/ML INJ IVP PRN (21:44)
[2018-04-05] MEDS ORDERED: fentaNYL 100 MCG/2 ML INJ IVP PRN (21:44)
--- NOTE | 2018-04-05 21:46 | POSTANESTH ---
Post Anesthetic Evaluation Cardiovascular Status: Similar to Pre-Op Cond Respiratory Status: Normal, Stable, Similar to Pre-op Cond. Level of Consciousness/Mental Status: Can Participate in Eval, Moderately Sleepy Pain Control: Adequate, Prn Tx Ordered Nausea/Vomiting Control: Adequate, Prn Tx Ordered Complications Possibly Related to Anesthesia: None Noted
[2018-04-05] MEDS: ACETAMINOPHEN 325 MG TAB PO SCH (23:27)
[2018-04-05] MEDS: FAMOTIDINE 20 MG TAB PO SCH (23:27)
[2018-04-05] MEDS: SERTRALINE HCL 50 MG TAB PO SCH (23:27)
[2018-04-05] MEDS: traMADol 50 MG TAB PO SCH (23:28)
--- NOTE | 2018-04-06 03:22 | GHP ---
[f rep st] HISTORY AND PHYSICAL DATE OF ADMISSION: 04/05/2018 CURRENT COMPLAINT: Left leg pain. HISTORY OF PRESENT ILLNESS: The patient is a 77-year-old female who fell while straightening her bed . She misstepped, landed on the floor directly onto her knee, had pain and deformity, was brought to the emergency room and diagnosed with a comminuted distal femur fracture. She was admitted to the [facility] [address] for formal fixation as soon as her n.p.o. status allowed. PAST MEDICAL HISTORY: Significant for osteoporosis. PRIOR SURGERY: Includes hysterectomy and bladder surgery. MEDICATIONS: Include Fosamax, multivitamins, as well as acyclovir and sertraline. ALLERGIES: Include sulfa medications. PHYSICAL EXAMINATION: HEENT: The patient's pupils equal, round, and reactive to light. CHEST: Ned ar to auscultation. HEART: Regular rate and rhythm. ABDOMEN: Soft and nontender. She is grossly neurologically intact to the dorsal, lateral, and plantar portions of the foot with EHL and FHL remai marta intact. Motion through the left leg causes pain. X-ray of the distal femur revealed a comminut ed fracture of the distal femur. ASSESSMENT AND PLAN: Patient is status post left distal femur fracture. Patient will be brought to the operating room as soon as her n.p.o. status allows her to be safely operated upon. /[id number]/MODL
--- NOTE | 2018-04-06 03:37 | GOP ---
[f rep st] OPERATIVE REPORT DATE OF OPERATION: SURGEON: Margarita Chen MD DIAMOND SIZER: Venu Ho, Certified SA, whose presence was medically necessary. ANESTHESIA: Endotracheal intubation. PREOPERATIVE DIAGNOSIS: Left comminuted distal femur fracture. POSTOPERATIVE DIAGNOSIS: Left comminuted distal femur fracture. PROCEDURE PERFORMED: Left distal femur open reduction/internal fixation with fluoroscopy. FINDINGS: INDICATIONS: This is a 77-year-old female, who fell at her home earlier today, was brought to the em ergency room, and diagnosed with a comminuted distal femur fracture. She was brought to the operatin g room as soon as her n.p.o. Status allowed her to be safely operate upon. DESCRIPTION OF PROCEDURE: Patient was brought to the operating room after the left side had been huber ntified as the correct side by the patient, nurse, and physician. Once in the operating room, she wa s placed under general anesthesia using endotracheal intubation. Once asleep, she was placed on a Ja [employer] table with a hip bump in order to gain access to the lateral portion of the thigh. The left lo wer extremity was sterilely prepped and draped in the usual fashion using GSI solution. Once prepped and draped, incision was made from just below the tibial joint line laterally up to the proximal third of her thigh with sharp dissection carried down through the skin and subcutaneous laye rs. Bleeding was controlled using electrocautery. The ITB TFL complex was incised in line with its fibers in order to gain access as well as the fascia overlying the vastus lateralis. Blunt dissection was then carried from the distal femur proximally, lifting up the vastus lateralis. An abundant amount of soft tissue dissection had been done by the actual fracture fragments themselv es. The wound was thoroughly irrigated with antibiotic solution in order to remove hematoma and smal l bits of bone. First priority was to get the condyles back together, therefore a large reduction clamp was placed on the medial and lateral portions of the condyle. A closed reduction was performed. A clamp was put into place and multiple K-wires were put in place in order to maintain rotational control as well as compression. The distal condylar fragments were then able to be reduced onto the rest of the femoral shaft. There was a severe amount of comminution on the medial portion of the knee so the reduction had to be based entirely on the lateral cortex. An 8-hole [employer] distal femoral left plate was put into place and noted to fit against the bone well . A single lag screw was placed through the center of the distal portion of the plate, catching the opposite condyle. Once in place and getting good compression across the condyle, several locking scr ews were then placed into the distal portion of the femoral plate in order to gain good purchase and good control of the bicondylar portion of the fracture. Fluoroscopy was used to ensure proper positioning of the screws as well as good reduction of the plat e onto the shaft of the femur. A single bicortical screw was placed in an offset hole in order to ga in compression through the fracture site. Once its position was checked, 6 other locking holes were filled in the 8 hole plate to gain good purchase onto the bone of the femur. Once in place, fluoroscopy was again used to ensure proper positioning of the plate and the screws douglas th in AP and lateral projections. Films were taken. The wound was then again thoroughly irrigated with antibiotic solution and was closed in layers to in clude 0 Vicryl suture for the fascial layers, 2-0 Vicryl suture for the subcutaneous layers, and stap les for the skin. The medial wound was closed with 2-0 Vicryl suture and tan. The wounds were t hen dressed with Xeroform, 4 x 4, and Tegaderm. The patient was completely undraped in the operating room. She was woken up, extubated, transferred onto a stretcher. A long-leg immobilizer locked at 0 degree s was placed on her left lower extremity. She was sent to the recovery room in good condition. /[id number]/MODL
[2018-04-06] MEDS: ceFAZolin 2 GM/DEXTROSE 100 ML IV SCH ×2 (04:01→12:46)
[2018-04-06] MEDS: ACETAMINOPHEN 325 MG TAB PO SCH ×3 (06:01→17:49)
[2018-04-06] MEDS: traMADol 50 MG TAB PO SCH ×3 (06:02→17:49)
[2018-04-06] MEDS ORDERED: CHOLECALCIFEROL VIT D3 50,000 UNIT CAP PO SCH (09:00)
[2018-04-06] MEDS: FAMOTIDINE 20 MG TAB PO SCH ×2 (09:56→20:40)
[2018-04-06] MEDS: ASCORBIC ACID 500 MG TAB PO SCH (09:56)
[2018-04-06] MEDS: SENNOSIDES/DOCUSATE SODIUM TAB PO SCH ×2 (09:56→20:40)
[2018-04-06] MEDS: RIVAROXABAN 10 MG TAB PO SCH (09:56)
[2018-04-06] MEDS: ACYCLOVIR 400 MG TAB PO SCH (09:56)
[2018-04-06] MEDS: POTASSIUM CL 20 MEQ TAB PO SCH (09:56)
--- NOTE | 2018-04-06 15:43 | ASMTCMCOM ---
CM Note CM Note Notes: Pt has L femur fx after fall at home which [place]. Pt has family bedside, pt dghtr/CHRISTIANO Avelina ([id number]) resides in the [place]. PT/OT rec SNF. Pt dghtr reports it is ok to call her at anytime, no matter the time difference. Pt dghtr requests referral to [facility] where pt has been before and had a better experience then [facility]. Referral sent in [employer]. to [facility] who will need [employer] insurance auth. D/c plan of care: SNF Date Signed: 04/06/2018 03:42 PM Electronically Signed By:LEO Gaston
--- NOTE | 2018-04-06 17:00 | HOSPPROG ---
Hospitalist Progress Note Assessment/Plan: 77-year-old female with past medical history of osteoporosis and depression admitted after suffering a mechanical fall with a fracture of her distal left femur Left distal femur fracture- management per Orthopedic surgery, now post op day 1. pain well controlled. Osteoporosis- on bisphosphonate at home. -continue vitamin D and calcium Anemia- new today and presumed to be blood loss secondary to surgery. Repeat H/ H in am. Depression- on sertraline for this. 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 continue ppx-SCDs, heparin per Ortho Fluids- would give gentle fluids after midnight Electrolytes- within normal limits Nutrition- regular diet with NPO after midnight Cor -full Dispo- inpatient for left distal femur fracture Subjective: pain adequately controlled. no NV or other complaints. Objective: Vital Signs Temp Pulse Resp BP Pulse Ox 36.7 C 101 H 14 118/64 92 04/06/18 15:56 04/06/18 15:56 04/06/18 15:56 04/06/18 15:56 04/06/18 15:56 Laboratory Results 04/06/18 04:39 04/05/18 04/06/18 04/07/18 05:59 05:59 05:59 Intake Total 3203 Output Total 1200 Balance 2002 - Physical Exam Constitutional: no apparent distress, appears nourished, not in pain Eyes: PERRL, anicteric sclera, EOMI Ears, Nose, Mouth, Throat: moist mucous membranes, hearing normal, ears appear normal, no oral mucosal ulcers Cardiovascular: regular rate and rhythym, no murmur, rub, or gallop Respiratory: no respiratory distress, no rales or rhonchi, clear to auscultation Gastrointestinal: normoactive bowel sounds, soft, non-tender abdomen, no palpable masses Genitourinary: no bladder fullness, no bladder tenderness, no renal bruits Skin: no rashes or abrasions, no fluctuance, no induration Musculoskeletal: full muscle strength, no muscle tenderness, normal joint ROM Neurologic: AAOx3, sensation intact bilaterally Psychiatric: interacting appropriately, not anxious, not encephalopathic, thought process linear Lymph, Heme, Immunologic: no cervical LAD, no supraclavicular LAD ICD10 Worksheet Patient Problems: Problems Problem Status Onset Femur fracture, left Acute Altered mental status Acute UTI (urinary tract infection) Acute
--- NOTE | 2018-04-06 17:34 | SOAPPROG ---
SOAP Progress Note Assessment/Plan: Assessment: Plan: Subjective: states her pain is under control dressings with min sang drainage foot NVI brace in place cont pain meds and pt Objective: Vital Signs Temp Pulse Resp BP Pulse Ox 36.7 C 101 H 14 118/64 92 04/06/18 15:56 04/06/18 15:56 04/06/18 15:56 04/06/18 15:56 04/06/18 15:56 Laboratory Results 04/06/18 04:39 04/05/18 04/06/18 04/07/18 05:59 05:59 05:59 Intake Total 3203 Output Total 1200 Balance 2002 ICD10 Worksheet Patient Problems: Problems Problem Status Onset Femur fracture, left Acute Altered mental status Acute UTI (urinary tract infection) Acute
[2018-04-06] MEDS: SERTRALINE HCL 50 MG TAB PO SCH (20:40)
[2018-04-07] MEDS: ACETAMINOPHEN 325 MG TAB PO SCH ×4 (00:30→18:16)
[2018-04-07] MEDS: traMADol 50 MG TAB PO SCH ×4 (00:33→18:16)
[2018-04-07] MEDS: FAMOTIDINE 20 MG TAB PO SCH ×2 (10:09→21:11)
[2018-04-07] MEDS: POTASSIUM CL 20 MEQ TAB PO SCH (10:09)
[2018-04-07] MEDS: ASCORBIC ACID 500 MG TAB PO SCH (10:09)
[2018-04-07] MEDS: ACYCLOVIR 400 MG TAB PO SCH (10:09)
[2018-04-07] MEDS: SENNOSIDES/DOCUSATE SODIUM TAB PO SCH ×2 (10:10→21:11)
[2018-04-07] MEDS: RIVAROXABAN 10 MG TAB PO SCH (10:10)
--- NOTE | 2018-04-07 14:46 | SOAPPROG ---
SOAP Progress Note Assessment/Plan: Assessment: Plan: Subjective: states she's comfortable no change in dressing brace in place cont pt and pain meds Objective: Vital Signs Temp Pulse Resp BP Pulse Ox 36.4 C 87 16 110/58 L 99 04/07/18 11:44 04/07/18 11:44 04/07/18 11:44 04/07/18 11:44 04/07/18 11:44 Laboratory Results 04/07/18 04:32 04/06/18 04/07/18 04/08/18 05:59 05:59 05:59 Intake Total 3203 400 Output Total 1200 500 Balance 2002 ICD10 Worksheet Patient Problems: Problems Problem Status Onset Femur fracture, left Acute Altered mental status Acute UTI (urinary tract infection) Acute
--- NOTE | 2018-04-07 17:45 | HOSPPROG ---
Hospitalist Progress Note Assessment/Plan: 77-year-old female with past medical history of osteoporosis and depression admitted after suffering a mechanical fall with a fracture of her distal left femur Left distal femur fracture- management per Orthopedic surgery, now post op day 1. pain well controlled. Osteoporosis- on bisphosphonate at home. -continue vitamin D and calcium Anemia- Presumed to be secondary to blood loss in surgery. Down again today to 7.6/22. Any further drops or if she becomes symptomatic I would transfuse PRBCs. Depression- on sertraline for this. Should be fine to continue encephalopathy- she is mild confused although I had to ask pretty detailed questions to determine that she was slightly confused. May be due to surgery, pain medications vs UTI. 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 continue ppx-SCDs, heparin per Ortho Fluids- would give gentle fluids after midnight Electrolytes- within normal limits Nutrition- regular diet with NPO after midnight Cor -full Dispo- inpatient for left distal femur fracture Subjective: pain adequately controlled. Objective: Vital Signs Temp Pulse Resp BP Pulse Ox 36.6 C 85 16 98/60 L 94 04/07/18 15:44 04/07/18 15:44 04/07/18 15:44 04/07/18 15:44 04/07/18 15:44 Laboratory Results 04/07/18 04:32 04/06/18 04/07/18 04/08/18 05:59 05:59 05:59 Intake Total 3203 400 Output Total 1200 500 525 Balance 2002 - Physical Exam Constitutional: no apparent distress, appears nourished, not in pain Eyes: PERRL, anicteric sclera, EOMI Ears, Nose, Mouth, Throat: moist mucous membranes, hearing normal, ears appear normal, no oral mucosal ulcers Cardiovascular: regular rate and rhythym, no murmur, rub, or gallop Respiratory: no respiratory distress, no rales or rhonchi, clear to auscultation Gastrointestinal: normoactive bowel sounds, soft, non-tender abdomen, no palpable masses Genitourinary: no bladder fullness, no bladder tenderness, no renal bruits Skin: no rashes or abrasions, no fluctuance, no induration Musculoskeletal: other (left leg in badnages. ) Neurologic: AAOx3, sensation intact bilaterally Psychiatric: interacting appropriately, not anxious, not encephalopathic, thought process linear Lymph, Heme, Immunologic: no cervical LAD, no supraclavicular LAD ICD10 Worksheet Patient Problems: Problems Problem Status Onset Femur fracture, left Acute Altered mental status Acute UTI (urinary tract infection) Acute
[2018-04-07] MEDS: SERTRALINE HCL 50 MG TAB PO SCH (21:11)
[2018-04-08] MEDS: ACETAMINOPHEN 325 MG TAB PO SCH ×4 (00:25→18:47)
[2018-04-08] MEDS: traMADol 50 MG TAB PO SCH ×4 (00:26→16:59)
[2018-04-08 06:21] LABS: PLATELET COUNT 211 10^3/uL (150-400)
[2018-04-08] MEDS: SENNOSIDES/DOCUSATE SODIUM TAB PO SCH ×2 (09:04→21:10)
[2018-04-08] MEDS: POTASSIUM CL 20 MEQ TAB PO SCH (09:04)
[2018-04-08] MEDS: ACYCLOVIR 400 MG TAB PO SCH (09:04)
[2018-04-08] MEDS: ASCORBIC ACID 500 MG TAB PO SCH (09:05)
[2018-04-08] MEDS: FAMOTIDINE 20 MG TAB PO SCH ×2 (09:05→21:10)
[2018-04-08] MEDS: RIVAROXABAN 10 MG TAB PO SCH (11:05)
--- NOTE | 2018-04-08 15:05 | SOAPPROG ---
SOAP Progress Note Assessment/Plan: Assessment: Plan: Subjective: states she has no pain getting transfused brace in place no change in dressing cont pt and pain meds Objective: Vital Signs Temp Pulse Resp BP Pulse Ox 36.7 C 85 16 137/74 H 93 04/08/18 11:33 04/08/18 11:33 04/08/18 11:33 04/08/18 11:33 04/08/18 11:33 Laboratory Results 04/08/18 04:25 04/08/18 04:25 04/07/18 04/08/18 04/09/18 05:59 05:59 05:59 Intake Total 400 300 Output Total 500 725 350 Balance -100 -425 -350 ICD10 Worksheet Patient Problems: Problems Problem Status Onset Femur fracture, left Acute Altered mental status Acute UTI (urinary tract infection) Acute
--- NOTE | 2018-04-08 16:58 | HOSPPROG ---
Hospitalist Progress Note Assessment/Plan: 77-year-old female with past medical history of osteoporosis and depression admitted after suffering a mechanical fall with a fracture of her distal left femur Left distal femur fracture- management per Orthopedic surgery, now post op day 1. pain well controlled. Osteoporosis- on bisphosphonate at home. -continue vitamin D and calcium Anemia- Presumed to be secondary to blood loss in surgery. Down again today to . -transfuse 2 units PRBCs. repeat CBC in am Depression- on sertraline for this. Should be fine to continue encephalopathy- she is mild confused although I had to ask pretty detailed questions to determine that she was slightly confused. May be due to surgery, pain medications vs UTI. -minimize mediations that might cause confusion -has some element of baseline confusion per family and nursing. 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 continue ppx-SCDs, heparin per Ortho Fluids- would give gentle fluids after midnight Electrolytes- within normal limits Nutrition- regular diet with NPO after midnight Cor -full Dispo- inpatient for left distal femur fracture Subjective: pain manageable Objective: Vital Signs Temp Pulse Resp BP Pulse Ox 36.9 C 90 16 155/85 H 94 04/08/18 15:53 04/08/18 15:53 04/08/18 15:53 04/08/18 15:53 04/08/18 15:53 Laboratory Results 04/08/18 04:25 04/08/18 04:25 04/07/18 04/08/18 04/09/18 05:59 05:59 05:59 Intake Total 400 300 900 Output Total 500 725 700 Balance -100 -425 200 - Physical Exam Constitutional: no apparent distress, appears nourished, not in pain Eyes: PERRL, anicteric sclera, EOMI Ears, Nose, Mouth, Throat: moist mucous membranes, hearing normal, ears appear normal, no oral mucosal ulcers Cardiovascular: regular rate and rhythym, no murmur, rub, or gallop Respiratory: no respiratory distress, no rales or rhonchi, clear to auscultation Gastrointestinal: normoactive bowel sounds, soft, non-tender abdomen, no palpable masses Genitourinary: no bladder fullness, no bladder tenderness, no renal bruits Skin: no rashes or abrasions, no fluctuance, no induration Musculoskeletal: full muscle strength, no muscle tenderness, normal joint ROM Neurologic: AAOx3, sensation intact bilaterally Psychiatric: interacting appropriately, not anxious, not encephalopathic, thought process linear Lymph, Heme, Immunologic: no cervical LAD, no supraclavicular LAD ICD10 Worksheet Patient Problems: Problems Problem Status Onset Femur fracture, left Acute Altered mental status Acute UTI (urinary tract infection) Acute
[2018-04-08] MEDS ORDERED: hydrALAZINE 20 MG/ML VIAL IVP PRN (18:23)
[2018-04-08] MEDS ORDERED: hydrALAZINE 20 MG/ML VIAL IVP ONE (18:25)
[2018-04-08] MEDS: SERTRALINE HCL 50 MG TAB PO SCH (21:10)
[2018-04-09] MEDS: ACETAMINOPHEN 325 MG TAB PO SCH ×2 (00:47→06:21)
[2018-04-09] MEDS ORDERED: ALENDRONATE SODIUM 70 MG TAB PO SCH (07:00)
[2018-04-09] MEDS ORDERED: NS 1,000 ML IV SCH (09:00)
[2018-04-09 09:58] LABS: PLATELET COUNT 258 10^3/uL (150-400)
[2018-04-09] MEDS: ASCORBIC ACID 500 MG TAB PO SCH (10:41)
[2018-04-09] MEDS: SENNOSIDES/DOCUSATE SODIUM TAB PO SCH (10:43)
[2018-04-09] MEDS: ACYCLOVIR 400 MG TAB PO SCH (10:43)
[2018-04-09] MEDS: FAMOTIDINE 20 MG TAB PO SCH (10:43)
[2018-04-09] MEDS: POTASSIUM CL 20 MEQ TAB PO SCH (10:44)
[2018-04-09] MEDS: RIVAROXABAN 10 MG TAB PO SCH (10:44)
--- NOTE | 2018-04-09 11:19 | PDIAF ---
- Diagnosis Diagnosis: left femur fracture Code Status: Full Code - Medication Management Discharge Medications: electronically signed and located in the Home Medication List. - Orders Services needed: Physical Therapy, Occupational Therapy Diet Recommendation: no restrictions on diet Diet Texture: Regular Texture Diet, Thin Liquids, Meds Whole in Puree Additional Instructions: NWRachel BOWDEN. Keep brace locked in extension. Dressing to remain in place until 5 days post op. Incision may get wet, however, no submerging. Follow up in office 10-14 days post op for repeat evaluation, radiographs, and wound check ) - Follow Up Care Current Providers and Referrals: Patient,NotPresent [Unknown] - As per Instructions Margarita Chen MD [Medical Doctor] -
[2018-04-09 11:22] VITALS: BP 114/70
--- NOTE | 2018-04-09 11:54 | ASMTLACE ---
LACE Length of stay for Answers: 4-6 days current admission Acuity / Level of Answers: Yes Care: Did the patient have an inpatient admission? # of Emergency department Answers: 1-2 visits in the last 6 months Score: 8 Date Signed: 04/09/2018 11:53 AM Electronically Signed By:Josiane Wolfe RN
--- NOTE | 2018-04-09 11:59 | ASMTDCNOTE ---
Case Management Discharge Discharge Order Complete? Answers: Yes Patient to Obtain Answers: Other Notes: [facility] Transportation Arranged Answers: Other Notes: [facility] will Pick (Date 04/09/2018 02:00 PM & Time) EMTALA Complete Answers: Yes Faxed Final Orders Answers: Yes Agency/Facility Transfer Answers: Yes Report Printed & Faxed to Receiving Agency Family Notified Answers: Yes Discharge Comments Notes: Patient medically cleared for d/c today. Spoke with Juliane at , authorization in place. All orders sent to via [facility] [place] to call report. Met with patient and family and notified of plan. [facility] scheduled 14:00 wheelchair van transport. Date Signed: 04/09/2018 11:55 AM Electronically Signed By:Josiane Wolfe RN
--- NOTE | 2018-04-09 12:14 | SOAPPROG ---
SOAP Progress Note Assessment/Plan: Assessment:Kristine is s/p left distal femur ORIF. She is doing well and is less confused today. She reports mild pain. PE: Brace is in place. Dressing clean and dry. Well fitting brace in place. DF/ PF of foot intact. NV intact LLE Plan: Plan to discharge to SNF today. Keep dressing clean and dry for 5 days post op. Remain in brace locked in extension. NWB LLE. Follow up in office 10- 14 days post op 04/09/18 12:13 Objective: Vital Signs Temp Pulse Resp BP Pulse Ox 37.0 C 88 14 114/70 98 04/09/18 07:36 04/09/18 11:22 04/09/18 11:22 04/09/18 11:22 04/09/18 11:22 Laboratory Results 04/09/18 09:06 04/09/18 09:06 04/08/18 04/09/18 04/10/18 05:59 05:59 05:59 Intake Total 300 900 350 Output Total 725 1250 Balance -425 -350 350 ICD10 Worksheet Patient Problems: Problems Problem Status Onset Femur fracture, left Acute Altered mental status Acute UTI (urinary tract infection) Acute
--- NOTE | 2018-04-09 12:48 | HOSPPROG ---
Hospitalist Progress Note Assessment/Plan: 77-year-old female with past medical history of osteoporosis and depression admitted after suffering a mechanical fall with a fracture of her distal left femur Left distal femur fracture- management per Orthopedic surgery, now post op. pain well controlled. Osteoporosis- on bisphosphonate at home. -continue vitamin D and calcium Anemia- Presumed to be secondary to blood loss in surgery. Down again today to . -transfuse 2 units PRBCs. repeat CBC in am Depression- on sertraline for this. Should be fine to continue encephalopathy- Remains confused today. urinalysis clean, no white count, fevers , or suggestion of infection. May be 2/2 to medications, hospitalization. She has had problems with this in the past that seemed to resolve once she was out of the hospital. -minimize mediations that might cause confusion -has some element of baseline confusion per family and nursing. 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 continue ppx-SCDs, heparin per Ortho Fluids- would give gentle fluids after midnight Electrolytes- within normal limits Nutrition- regular diet with NPO after midnight Cor -full Dispo- inpatient for left distal femur fracture Objective: Vital Signs Temp Pulse Resp BP Pulse Ox 37.0 C 88 14 114/70 98 04/09/18 07:36 04/09/18 11:22 04/09/18 11:22 04/09/18 11:22 04/09/18 11:22 Laboratory Results 04/09/18 09:06 04/09/18 09:06 04/08/18 04/09/18 04/10/18 05:59 05:59 05:59 Intake Total 300 900 350 Output Total 725 1250 Balance -425 -350 350 - Physical Exam Constitutional: no apparent distress, appears nourished, not in pain Eyes: PERRL, anicteric sclera, EOMI Ears, Nose, Mouth, Throat: moist mucous membranes, hearing normal, ears appear normal, no oral mucosal ulcers Cardiovascular: regular rate and rhythym, no murmur, rub, or gallop Respiratory: no respiratory distress, no rales or rhonchi, clear to auscultation Gastrointestinal: normoactive bowel sounds, soft, non-tender abdomen, no palpable masses Genitourinary: no bladder fullness, no bladder tenderness, no renal bruits Skin: no rashes or abrasions, no fluctuance, no induration Musculoskeletal: full muscle strength, no muscle tenderness, normal joint ROM Neurologic: CN II-XII Intact, other (oriented X 3 on my examination. ) Psychiatric: interacting appropriately, not anxious, not encephalopathic, thought process linear Lymph, Heme, Immunologic: no cervical LAD, no supraclavicular LAD ICD10 Worksheet Patient Problems: Problems Problem Status Onset Femur fracture, left Acute Altered mental status Acute UTI (urinary tract infection) Acute
--- NOTE | 2018-04-10 08:20 | ASDISCHSUM ---
Discharge Information Plan Status:SNF Medically Cleared to Leave: Discharge Date:04/09/2018 02:31 PM D/C Disposition:[facility] ADT D/C Disposition:Home, Routine, Self-Care Projected Discharge Date:04/09/2018 11:00 AM Transportation at D/C:Wheelchair Van Discharge Delay Reason: Follow-Up Date:04/09/2018 11:00 AM Discharge Slot: Final Diagnosis: Placement Information Referral Type:*[facility]/SNF Referral ID:[id number] Provider Name:Libia Sousa Address 1:[address] Phone Number: Address 2: Fax Number: City:[place] Selection Factors: State:[place] Patient Contact Information Contact Name:ZELDA Relationship:Daughter Address:[address] Work Phone: City:[place] Alternate Phone: State/Zip Code:[place] [address] Email: Financial Information Financial Class:Medicare Advantage Plans Primary Plan Desc:[facility] [employer] Primary Plan Number:[id number] Secondary Plan Desc: Secondary Plan Number: Assessment Information LACE LACE Length of stay for Answers: 4-6 days current admission Acuity / Level of Answers: Yes Care: Did the patient have an inpatient admission? # of Emergency department Answers: 1-2 visits in the last 6 months Score: 8 Date Signed: 04/09/2018 11:53 AM Electronically Signed By:Josiane Wolfe RN [facility] CM Progress Note CM Note CM Note Notes: Pt has L femur fx after fall at home which is [facility] [place]. Pt has family bedside, pt taryn/CHRISTIANO Quan ([id number]) resides in the [place]. PT/OT rec SNF. Pt dghtr reports it is ok to call her at anytime, no matter the time difference. Pt dghtr requests referral to [facility] where pt has been before and had a better experience then [facility]. Referral sent in [employer]. to [facility] who will need [employer] insurance auth. D/c plan of care: SNF Date Signed: 04/06/2018 03:42 PM Electronically Signed By:LEO Gaston Case Management Discharge Plan Note Case Management Discharge Discharge Order Complete? Answers: Yes Patient to Obtain Answers: Other Notes: [facility] Transportation Arranged Answers: Other Notes: [facility] Transport will Pick (Date 04/09/2018 02:00 PM & Time) EMTALA Complete Answers: Yes Faxed Final Orders Answers: Yes Agency/Facility Transfer Answers: Yes Report Printed & Faxed to Receiving Agency Family Notified Answers: Yes Discharge Comments Notes: Patient medically cleared for d/c today. Spoke with Juliane at , authorization in place. All orders sent to [facility] via [facility] to call report. Met with patient and family and notified of plan. [facility] scheduled 14:00 wheelchair van transport. Date Signed: 04/09/2018 11:55 AM Electronically Signed By:Josiane Wolfe RN Intervention Information Intervention Type:*IM-Signed Date of Service:04/09/2018 11:53 AM Patient Type:Inpatient Staff Member:W[place]undara, Eloina Hours: Discipline: Severity: Comment:
--- NOTE | 2018-04-15 14:39 | CPEKG ---
Test Reason : OPEN Blood Pressure : / mmHG Vent. Rate : 069 BPM Atrial Rate : 067 BPM P-R Int : 159 ms QRS Dur : 082 ms QT Int : 433 ms P-R-T Axes : 074 001 030 degrees QTc Int : 464 ms Sinus rhythm Probable left atrial enlargement Nonspecific T abnormalities, anterior leads Confirmed by Cresencio Hall ([id number]) on 04/15/2018 2:38:28 PM Referred By: Cresencio Hall Confirmed By:Cresencio Hall
--- NOTE | 2018-04-17 12:32 | GDS ---
[f rep st] DISCHARGE SUMMARY CHIEF COMPLAINT: Left knee pain. HISTORY OF PRESENT ILLNESS: The patient is a 77-year-old female who fell at home, had pain and defor mity at her knee. Was diagnosed with a distal comminuted distal femur fracture. She was brought to the operating room on the day of admission, where she underwent an open reduction and internal fixati on with fluoroscopy of the left distal femur. Postoperatively, her pain was fairly well kept under c ontrol, however, she progressed very slowly with physical therapy. She had to stay in a brace and wa s nonweightbearing. She was therefore discharged to a rehab facility on 04/10/2018 with instructions to continue to be nonweightbearing in a locked long leg brace, to maintain her calcium intake. She is to follow up in the office for further evaluation. DISCHARGE DIAGNOSIS: She was given a discharge diagnosis of left distal femur comminuted fracture. /[id number]/MODL
--- NOTE | 2018-04-19 21:44 | PQFORM ---
PHYSICIAN QUERY FORM Needs Your Response This query form is being sent to you to assure this patient record is coded properly. Please respond to the question below: FILM PROCESS OPERATOR QUESTION: Dr Chen Please Clarify if patient has diagnosis of Acute Blood Loss Anemia. _y__ Yes ___ No ___ Other (please Specify ) ___ Unable to determine Thank You Navya TOVAR Mineral Mixer INSTRUCTIONS FOR RESPONSE: Answer question by clicking on the "Edit Document" button. Move cursor to area below the stars. When complete, hit "Save." Click on the "Sign" button, then click "Sign" again. Type in your PIN and hit "Enter." MTDD
--- NOTE | 2018-04-19 21:45 | PQFORM ---
PHYSICIAN QUERY FORM Needs Your Response This query form is being sent to you to assure this patient record is coded properly. Please respond to the question below: SET BUILDER QUESTION: Dr Chen Please verify if this patient had Acute Encephalopathy. __y_ Yes ___ No ___ Other (Please Specify ) ___ Unable to determine Thank You Navya TOVAR Assembly Instructions Writer INSTRUCTIONS FOR RESPONSE: Answer question by clicking on the "Edit Document" button. Move cursor to area below the stars. When complete, hit "Save." Click on the "Sign" button, then click "Sign" again. Type in your PIN and hit "Enter." MTDD
== END 2018-04-09 14:31 | disposition home or self-care (01) | DRG 481 ==
LOC: EDBD → EDUNIT# → OBSVTOIN 11:46 → F3N 13:45
PROVIDERS: ADMIT Orthopaedic Surgery; ATTEND Orthopaedic Surgery
PROC: 0QSC04Z Reposition Left Lower Femur with Internal Fixation Device, Open Approach (ICD-10-PCS; principal; 2018-04-05 18:00)
DX: S72.492A Other fracture of lower end of left femur, initial encounter for closed fracture (principal); W18.39XA Other fall on same level, initial encounter; Y92.013 Bedroom of single-family (private) house as the place of occurrence of the external cause; G93.40 Encephalopathy, unspecified; D62 Acute posthemorrhagic anemia; M81.0 Age-related osteoporosis without current pathological fracture; F32.9 Major depressive disorder, single episode, unspecified; B00.9 Herpesviral infection, unspecified
CPT/HCPCS: 92507-GN; 92523-GN; 92610-GN; 96374; 97116-GP; 97161-GP; 97167-GO; 97530-GP; 97535-GO; C1713; J0360; J0690; J1100; J1170; J2001; J2405; J2704; J3010; L1832; P9016; P9021

== ENCOUNTER 2018-06-14 20:27 | Emergency (ER) | payer OTHER ==
--- NOTE | 2018-06-14 20:28 | EDPHY ---
H & P Time Seen by Provider: 06/14/18 20:27 HPI/ROS: CHIEF COMPLAINT: Favoring the left leg HISTORY OF PRESENT ILLNESS: Admitted on 04/05/2018 for distal left femur fracture. Had a mechanical fall last night has been favoring her left leg more than usual since then. Brought in by EMS for evaluation. Denies right-sided pain or head injury or neck or back pain. REVIEW OF SYSTEMS: Eye: no change in vision ENT: no sore throat Cardiac: no chest pain or syncope Pulmonary: no cough or SOB Abdomen: no vomiting, diarrhea, abdominal pain Musculoskeletal: No back or neck pain Skin: No laceration Neuro: no headache Constitutional: no fever : no urinary symptoms A comprehensive 10 point review of systems is otherwise negative aside from elements mentioned in the history of present illness. PAST MEDICAL HISTORY: History and physical dated 04/05/2018 includes osteoporosis, depression, erythema multiform, hysterectomy. Social history: No tobacco or alcohol, currently at [facility] General Appearance: Alert and conversant, cooperative. Eyes: No scleral icterus. ENT, Mouth: Normal mucous membranes. Respiratory: Normal respiratory effort, breath sounds equal, lungs are clear to auscultation. Cardiovascular: Regular rate and rhythm. Gastrointestinal: Abdomen is soft and non tender. Neurological: Alert, face symmetric, normal motor and sensory in extremities. Skin: Warm and dry, no rashes. No bruising or lacerations on the left hip. Musculoskeletal: The patient is wearing her knee brace on the left knee. Tenderness to palpation of the left hip but not worsened with rotation or axial loading. Otherwise no extremity or spinal bony tenderness. Specifically she is not tender on the right hip femur knee lower leg. Psychiatric: Not agitated. Emergency Department course/MDM: X-rays obtained of the left hip and left knee, left femur. 2141: X-rays personally interpreted as negative of the left hip femur and knee. Discussed with family is comfortable taking her back to [facility]. Constitutional: Initial Vital Signs Temperature (C) 36.8 C 06/14/18 20:25 Heart Rate 87 06/14/18 20:25 Respiratory Rate 16 06/14/18 20:25 Blood Pressure 140/80 H 06/14/18 20:25 O2 Sat (%) 96 06/14/18 20:25 O2 Delivery Mode Room Air Allergies/Adverse Reactions: Sulfa (Sulfonamide Antibiotics) Allergy (Intermediate, Verified 06/14/18 20:36) Home Medications: Medication Instructions Recorded Acyclovir [Zovirax 200 mg (*)] 400 mg PO DAILY 10/06/12 Alendronate Sodium [Fosamax 70 MG 70 mg PO MO@0700 04/05/18 (*)] Loperamide HCl [Imodium 2 mg (*)] 2 mg PO PRN PRN 04/05/18 Potassium Cl [Klor-Con 20 meq (*)] 20 meq PO DAILY 04/05/18 Sertraline HCl [Zoloft 50mg (*)] 50 mg PO HS 04/05/18 Acetaminophen [Tylenol 325mg (*)] 650 mg PO Q6HRS tab 04/09/18 Famotidine [Pepcid 20 MG (*)] 20 mg PO BID tab 04/09/18 Acidophilus Capsule 06/14/18 Biscolax 06/14/18 Polyethylene Glycol 3350 06/14/18 Senexon-S Tablet 06/14/18 Vitamin C 06/14/18 Vitamin D3 06/14/18 Medical Decision Making - Diagnostics Imaging Results: Imaging Impressions Hip X-Ray 06/14/18 20:31 Impression: No left hip fracture identified. If there is clinical concern for a right inferior pubic ramus fracture, then consider noncontrast CT. 2. Left , 4 views History: Pain post fall Comparison: 04/05/2018 Findings: No acute fracture is identified. A comminuted intra-articular fracture of the distal femur has been orthopedically corrected with a lateral compression plate and 13 compression screws. The fracture lines of the distal femoral shaft are still visible. There is medial periosteal new bone. There is no evidence for hardware fracture or loosening. There is no knee joint effusion. Horizontal sclerosis in the medial tibial plateau is consistent with a healing or healed fracture. Impression: Nothing acute identified. Knee X-Ray 06/14/18 20:31 Impression: No left hip fracture identified. If there is clinical concern for a right inferior pubic ramus fracture, then consider noncontrast CT. 2. Left , 4 views History: Pain post fall Comparison: 04/05/2018 Findings: No acute fracture is identified. A comminuted intra-articular fracture of the distal femur has been orthopedically corrected with a lateral compression plate and 13 compression screws. The fracture lines of the distal femoral shaft are still visible. There is medial periosteal new bone. There is no evidence for hardware fracture or loosening. There is no knee joint effusion. Horizontal sclerosis in the medial tibial plateau is consistent with a healing or healed fracture. Impression: Nothing acute identified. Femur X-Ray 06/14/18 20:35 Impression: Nothing acute identified. Imaging: I viewed and interpreted images myself Departure - Departure Disposition: Home, Routine, Self-Care Clinical Impression: Contusion of left hip and thigh Qualifiers: Encounter type: initial encounter Qualified Code(s): S70.02XA - Contusion of left hip, initial encounter Condition: Good Instructions: Hip Contusion (ED) Referrals: Miguel Ángel Merlos DO [Primary Care Provider] - As per Instructions
[2018-06-14 21:51] VITALS: BP 141/84
== END 2018-06-14 21:51 | disposition home or self-care (01) ==
LOC: EDUNIT#
DX: S70.02XA Contusion of left hip, initial encounter (principal); W19.XXXA Unspecified fall, initial encounter

== ENCOUNTER 2018-06-16 19:11 | Observation (INO) | payer OTHER ==
[2018-06-16 20:23] LABS: PLATELET COUNT 304 10^3/uL (150-400)
[2018-06-16] MEDS ORDERED: ACETAMINOPHEN 325 MG TAB PO PRN (21:38)
[2018-06-16] MEDS ORDERED: ONDANSETRON 4 MG/2 ML VIAL IVP PRN (21:38)
--- NOTE | 2018-06-17 01:08 | GHP ---
[f rep st] HISTORY AND PHYSICAL DATE OF ADMISSION: 06/16/2018 CHIEF COMPLAINT: Confusion/altered mental status. HISTORY OF PRESENT ILLNESS: The patient is a 78-year-old female who currently resides at [facility] who reportedly has a history of encephalopathy secondary to urinary tract infections. When her fam alexx found her to be more confused than her baseline, they brought her in for further evaluation. In the emergency room, she had a urinalysis which showed 3+ leukocyte esterase and elevated white blood cells. Patient was given a dose of ceftriaxone in the emergency room and admitted for further monito ring. PAST MEDICAL HISTORY: Osteoporosis, depression. PAST SURGICAL HISTORY: Pelvic surgery for pelvic organ prolapse. MEDICATIONS: Alendronate 70 mg weekly, Pepcid 20 mg twice a day, Zoloft 50 mg nightly. ALLERGIES: Sulfa. FAMILY HISTORY: Mother and father , unknown causes. SOCIAL HISTORY: Patient is listed as a nonsmoker. She currently resides at [facility]. REVIEW OF SYSTEMS: Unable to obtain full review of systems secondary to encephalopathy. PHYSICAL EXAMINATION: VITAL SIGNS: Temperature 36.9, blood pressure 124/62, heart rate 96, respirat ions 18, satting 96% on room air. GENERAL: Patient resting comfortably in bed, no acute distress. NECK: Supple. No thyroid enlargement. CHEST: Clear on auscultation with normal respiratory effort . HEART: Regular with no murmurs. ABDOMEN: Soft, nontender, nondistended. No suprapubic tenderne ss. Normal bowel sounds. : No Thomas catheter in place. EXTREMITIES: No significant pitting nolan ma appreciated. SKIN: No rashes noted. LABORATORY: White blood cell count 6, hemoglobin 11, platelets 304. Sodium 138, potassium 3.8, chlo ride 103, bicarb 26, BUN 17, creatinine 0.7, glucose 162. ASSESSMENT AND PLAN: 1. Encephalopathy, suspecting secondary to urinary tract infection. Monitor with treatment. 2. Urinary tract infection. Continue with current ceftriaxone and await urine culture and sensitivi ties. 3. Hip pain. CT being ordered for further assessment. 4. Depression. Once medication reconciliation is complete, would plan on continuing SSRI therapy. 5. Deep venous thrombosis prophylaxis. Lovenox. DISPOSITION: I recommend admission under observation status pending further evaluation. /[id number]/MODL
[2018-06-17] MEDS: NS 1,000 ML IV SCH ×2 (01:39→17:09)
--- NOTE | 2018-06-17 01:39 | EDPHY ---
H & P Stated Complaint: AMS Time Seen by Provider: 06/16/18 19:47 HPI/ROS: Chief complaint: Altered mental status History of present illness: This is a 78-year-old female who presents to the emergency department with EMS for evaluation of altered mental status. She currently resides at [facility] assisted living. Family is at bedside. According to family patient appears to be becoming more confused over the last few days. She does not appear to be herself. She is not speaking appropriately. They are concerned because she has had a urinary tract infection in the past that presented in a similar way. In addition patient has apparent ongoing hip pain. She had a slip and fall 2 days ago and was seen in this emergency department. She was complaining of pain on the left at that time but pain appears to be on right now. On my evaluation patient does tell me she is feeling unwell. She does feel like something is off but cannot specifically place it. Review of systems: A 10 point review of systems was obtained and other than described above was negative. - Personal History Current Tetanus/Diphtheria Vaccine: Yes Current Tetanus Diphtheria and Acellular Pertussis (TDAP): Yes - Medical/Surgical History Hx Asthma: No Hx Chronic Respiratory Disease: No Hx Diabetes: No Hx Cardiac Disease: No Hx Renal Disease: No Hx Cirrhosis: No Hx Alcoholism: No Hx HIV/AIDS: No Hx Splenectomy or Spleen Trauma: No Other PMH: hx: hysterectomy, bladder, erythemia multiform, osteoporosis, closed fc left tibial plateau, dysthymic D/O, left femur fracture from fall 03/2018 - Social History Smoking Status: Never smoked - Physical Exam Exam: General Appearance: Alert, nontoxic. Eyes: Pupils equal and round no pallor or injection. ENT, Mouth: Mucous membranes moist. Respiratory: There are no retractions, lungs are clear to auscultation. Cardiovascular: Regular rate and rhythm. Gastrointestinal: Abdomen is soft and non tender, no masses, bowel sounds normal. Neurological: Alert. Strength and sensation intact and symmetrical. Skin: Warm and dry, no rashes. Musculoskeletal: Neck is supple non tender. Extremities are symmetrical, full range of motion. Psychiatric: No agitation. Constitutional: Initial Vital Signs Temperature (C) 36.9 C 06/16/18 19:19 Heart Rate 96 06/16/18 19:19 Respiratory Rate 18 06/16/18 19:19 Blood Pressure 124/62 H 06/16/18 19:19 O2 Sat (%) 96 06/16/18 19:19 O2 Delivery Mode Room Air Allergies/Adverse Reactions: Sulfa (Sulfonamide Antibiotics) Allergy (Intermediate, Verified 06/16/18 19:18) Home Medications: Medication Instructions Recorded Acyclovir [Zovirax 200 mg (*)] 400 mg PO DAILY 10/06/12 Alendronate Sodium [Fosamax 70 MG 70 mg PO MO@0700 04/05/18 (*)] Loperamide HCl [Imodium 2 mg (*)] 2 mg PO PRN PRN 04/05/18 Potassium Cl [Klor-Con 20 meq (*)] 20 meq PO DAILY 04/05/18 Sertraline HCl [Zoloft 50mg (*)] 50 mg PO HS 04/05/18 Acetaminophen [Tylenol 325mg (*)] 650 mg PO Q6HRS tab 04/09/18 Famotidine [Pepcid 20 MG (*)] 20 mg PO BID tab 04/09/18 Acidophilus Capsule 06/14/18 Biscolax 06/14/18 Polyethylene Glycol 3350 06/14/18 Senexon-S Tablet 06/14/18 Vitamin C 06/14/18 Vitamin D3 06/14/18 Medical Decision Making - Diagnostics Imaging Results: Imaging Impressions Hip X-Ray 06/16/18 20:05 Impression: 1. No evidence of right hip fracture or dislocation. 2. No significant degenerative changes of the hips. 3. Bilateral sacroiliac degenerative changes. 4. Consider additional imaging with CT or MRI if clinically indicated Chest X-Ray 06/16/18 20:06 Impression: 1. Mild chronic bronchitis. 2. No focal pneumonia. Extremity CT 06/16/18 20:57 Impression: No evidence of definite right hip fracture or right pubic rami fracture. Findings and recommendations discussed with Emergency Department physician, BENITO Garcia at 21:43 hour, 06/16/2018. Final report concurs with initial preliminary interpretation. Imaging: Discussed imaging studies w/ credit review manager Radiologist, I viewed and interpreted images myself ED Course/Re-evaluation: Patient is discussed with my primary supervising physician Dr. Gabi Fuchs. Patient presents to the emergency department with family primarily for altered mental status. Although I am able to converse with patient family states she is not acting appropriately. Patient does feel off. She does appear to have a urinary tract infection. She is given 1 g of Rocephin IV. In addition she is complaining of right hip pain. Imaging studies are negative. Likely contusion. I have consulted with the hospitalist service, Dr. Kade Krueger. He will admit this patient for further evaluation and care. Plan has been discussed with patient and family. They voiced understanding and agreement with. Differential Diagnosis: Included but not limited to infectious pathology such as urinary tract infection or pneumonia, electrolyte disturbance, anemia, cardiac disturbance, as well as trauma such as contusion and fracture - Data Points Laboratory Results: Laboratory Results 06/16/18 20:15 06/16/18 20:15 06/16/18 06/16/18 06/16/18 20:50 20:18 20:15 WBC RBC Hgb Hct MCV MCH MCHC RDW Plt Count MPV Neut % (Auto) Lymph % (Auto) [place] % (Auto) Eos % (Auto) Baso % (Auto) Nucleat RBC Rel Count Absolute Neuts (auto) Absolute Lymphs (auto) Absolute Monos (auto) Absolute Eos (auto) Absolute Basos (auto) Absolute Nucleated RBC Immature Gran % Immature Gran # Sodium 138 mEq/L mEq/L (135-145) Potassium 3.8 mEq/L mEq/L (3.5-5.2) Chloride 103 mEq/L mEq/L (97-110) Carbon Dioxide 26 mEq/l mEq/l (22-31) Anion Gap 9 mEq/L mEq/L (6-14) BUN 17 mg/dL mg/dL (7-23) Creatinine 0.7 mg/dL mg/dL (0.6-1.0) Estimated GFR > 60 Glucose 162 mg/dL H mg/dL (70-100) Calcium 9.3 mg/dL mg/dL (8.5-10.4) POC Troponin I 0.00 ng/mL ng/mL (0.00-0.08) Urine Color YELLOW Urine Appearance MODERATELY TURBID Urine pH 5.0 (5.0-7.5) Ur Specific [place] 1.013 (1.002-1.030) Urine Protein NEGATIVE (NEGATIVE) Urine Ketones NEGATIVE (NEGATIVE) Urine Blood NEGATIVE (NEGATIVE) Urine Nitrate NEGATIVE (NEGATIVE) Urine Bilirubin NEGATIVE (NEGATIVE) Urine Urobilinogen NEGATIVE EU EU (0.2-1.0) Ur Leukocyte Esterase 3+ H (NEGATIVE) Urine RBC 5-10 /hpf H /hpf (0-3) Urine WBC 50-182 /hpf H /hpf (0-3) Ur Epithelial Cells TRACE /lpf /lpf (NONE-1+) Urine Bacteria 3+ /hpf H /hpf (NONE SEEN) Urine Mucus TRACE /lpf /lpf (NONE-1+) Urine Glucose NEGATIVE (NEGATIVE) 06/16/18 20:15 WBC 6.83 10^3/uL 10^3/uL (3.80-9.50) RBC 3.72 10^6/uL L 10^6/uL (4.18-5.33) Hgb 11.9 g/dL L g/dL (12.6-16.3) Hct 35.7 % L % (38.0-47.0) MCV 96.0 fL fL (81.5-99.8) MCH 32.0 pg pg (27.9-34.1) MCHC 33.3 g/dL g/dL (32.4-36.7) RDW 14.6 % % (11.5-15.2) Plt Count 304 10^3/uL 10^3/uL (150-400) MPV 8.5 fL L fL (8.7-11.7) Neut % (Auto) 73.7 % % (39.3-74.2) Lymph % (Auto) 14.5 % L % (15.0-45.0) [place] % (Auto) 9.7 % % (4.5-13.0) Eos % (Auto) 1.3 % % (0.6-7.6) Baso % (Auto) 0.7 % % (0.3-1.7) Nucleat RBC Rel Count 0.0 % % (0.0-0.2) Absolute Neuts (auto) 5.03 10^3/uL 10^3/uL (1.70-6.50) Absolute Lymphs (auto) 0.99 10^3/uL L 10^3/uL (1.00-3.00) Absolute Monos (auto) 0.66 10^3/uL 10^3/uL (0.30-0.80) Absolute Eos (auto) 0.09 10^3/uL 10^3/uL (0.03-0.40) Absolute Basos (auto) 0.05 10^3/uL 10^3/uL (0.02-0.10) Absolute Nucleated RBC 0.00 10^3/uL 10^3/uL (0-0.01) Immature Gran % 0.1 % % (0.0-1.1) Immature Gran # 0.01 10^3/uL 10^3/uL (0.00-0.10) Sodium Potassium Chloride Carbon Dioxide Anion Gap BUN Creatinine Estimated GFR Glucose Calcium POC Troponin I Urine Color Urine Appearance Urine pH Ur Specific [place] Urine Protein Urine Ketones Urine Blood Urine Nitrate Urine Bilirubin Urine Urobilinogen Ur Leukocyte Esterase Urine RBC Urine WBC Ur Epithelial Cells Urine Bacteria Urine Mucus Urine Glucose Medications Given: Discontinued Medications Ceftriaxone Sodium/Dextrose (Rocephin 1 Gm (Premix)) 50 mls @ 100 mls/hr IV EDNOW ONE PRN Reason: Protocol Stop: 06/16/18 22:05 Last Admin: 06/16/18 21:42 Dose: 50 mls Point of Care Test Results: Chemistry 06/16/18 20:18 POC Troponin I 0.00 ng/mL ng/mL (0.00-0.08) Departure - Departure Disposition: [facility] Inpatient Acute Clinical Impression: UTI (urinary tract infection) Qualifiers: Urinary tract infection type: site unspecified Hematuria presence: with hematuria Qualified Code(s): N39.0 - Urinary tract infection, site not specified ; R31.9 - Hematuria, unspecified; R31.9 - Hematuria, unspecified Hip pain Qualifiers: Laterality: right Qualified Code(s): M25.551 - Pain in right hip Condition: Fair
[2018-06-17] MEDS: ENOXAPARIN 40 MG/0.4 ML SYR SC SCH (09:52)
--- NOTE | 2018-06-17 12:27 | ASMTCMCOM ---
CM Note CM Note Notes: CM spoke with pt in the room and conducted chart review. Pt lives in assisted living at [facility] and is a . Pt admitted for UTI with encephalopaty and has a hx of the same. Pt's dtr Nicolle Little lives in [place] and is decision maker. Pt's son in law Orestes Solitario is in town and will be able to provide transport for pt. back to [facility]. Referral has been sent to [facility] and PT is pending at this time. Possible dc as early as tomorrow. CM to follow. D/C Plan: TBD Date Signed: 06/17/2018 12:26 PM Electronically Signed By:Alissa Pollack
--- NOTE | 2018-06-17 14:20 | HOSPPROG ---
Hospitalist Progress Note Assessment/Plan: Patient is a 78-year-old female who resides at [facility]. 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 When her family found her she was more confused than her baseline. She was admitted for further care. 1st encounter. Chart reviewed. *acute encephalopathy -resolved -patient says this happens when she gets dehydrated and UTI -she is alert, oriented to person, place, time and situation -no focal neuro deficits noted *UTI -in the past, she has been michelle sensitive -awaiting sensitivities *Hip pain w underlying osteoporosis -reviewed CT scan which showed no hip fx or pelvic fx *Depression -Zoloft resumed *dehydration -IV fluids *dvt prophylaxis: LMWH *plan: Mary is feeling better but still dehydrated and too weak to be dc. will ask PT and OT to see, will f/u with her urine studies. Likely to dc tomorrow morning. Message left for Rich her son in law to update him on plan of care. Subjective: Mary is feeling much better today. Objective: Vital Signs Temp Pulse Resp BP Pulse Ox 36.5 C 87 16 101/56 L 92 06/17/18 12:08 06/17/18 12:08 06/17/18 12:08 06/17/18 12:08 06/17/18 12:08 06/16/18 06/17/18 06/18/18 05:59 05:59 05:59 Intake Total 390 Balance 390 - Physical Exam Constitutional: no apparent distress, appears nourished Eyes: PERRL Ears, Nose, Mouth, Throat: hearing normal Cardiovascular: regular rate and rhythym Respiratory: no respiratory distress Skin: warm Musculoskeletal: generalized weakness Neurologic: AAOx3, sensation intact bilaterally, other (tongue midline, smile symmetrical), No numbness, No pronator drift, No facial droop Psychiatric: interacting appropriately, not anxious ICD10 Worksheet Patient Problems: Problems Problem Status Onset Hip pain Acute UTI (urinary tract infection) Acute Altered mental status Acute Femur fracture, left Acute
[2018-06-17] MEDS ORDERED: SERTRALINE HCL 50 MG TAB PO SCH (21:00)
[2018-06-17] MEDS: FAMOTIDINE 20 MG TAB PO SCH (22:15)
[2018-06-18] MEDS: ENOXAPARIN 40 MG/0.4 ML SYR SC SCH (08:33)
[2018-06-18] MEDS: FAMOTIDINE 20 MG TAB PO SCH (08:33)
[2018-06-18] MEDS ORDERED: ACYCLOVIR 400 MG TAB PO SCH (09:00)
[2018-06-18] MEDS ORDERED: ASCORBIC ACID 500 MG TAB PO SCH (09:00)
--- NOTE | 2018-06-18 11:57 | HOSPPROG ---
Hospitalist Progress Note Assessment/Plan: Patient is a 78-year-old female who resides at [facility]. 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 When her family found her she was more confused than her baseline. She was admitted for further care. *acute encephalopathy -resolved -patient says this happens when she gets dehydrated and UTI -she is alert, oriented to person, place, time and situation -no focal neuro deficits noted *UTI -in the past, she has been michelle sensitive -awaiting sensitivities *Hip pain w underlying osteoporosis -reviewed CT scan which showed no hip fx or pelvic fx *Depression -Zoloft resumed *dehydration -IV fluids *dvt prophylaxis: LMWH *plan: Mary is feeling much better today, says she is back to baseline, suspect she was very dehydrated which made her more confused. Subjective: Mary is feeling much better today Objective: Vital Signs Temp Pulse Resp BP Pulse Ox 36.6 C 78 12 126/69 H 95 06/18/18 07:36 06/18/18 09:25 06/18/18 07:36 06/18/18 09:25 06/18/18 09:25 06/17/18 06/18/18 06/19/18 05:59 05:59 05:59 Intake Total 390 1114 Balance 390 1114 - Physical Exam Constitutional: no apparent distress, appears nourished, not in pain Eyes: PERRL Ears, Nose, Mouth, Throat: hearing normal Respiratory: no respiratory distress Skin: warm Neurologic: AAOx3 Psychiatric: interacting appropriately ICD10 Worksheet Patient Problems: Problems Problem Status Onset Hip pain Acute UTI (urinary tract infection) Acute Altered mental status Acute Femur fracture, left Acute
[2018-06-18 12:15] VITALS: BP 119/68
--- NOTE | 2018-06-18 13:55 | PDIAF ---
- Diagnosis Diagnosis: UTI, dehydration, weakness Code Status: Full Code - Medication Management Discharge Medications: electronically signed and located in the Home Medication List. PICC Care - Routine: N/A - Orders Services needed: Home Care, Registered Nurse, Physical Therapy, Occupational Therapy Home Care Face to Face: I certify that this patient was under my care and that I had the required [id number] encounter meeting the encounter requirements on the discharge day. My findings support the fact that the patient is homebound as defined in Home Care Face to Face Continued: CMS Chapter 7 Medicare Benefits Manual 30.1.1 , The condition of the patient is such that there exists a normal inability to leave home and consequently, leaving home would require a considerable and taxing effort. Diet Recommendation: no restrictions on diet Diet Texture: Regular Texture Diet Activity/Weight Bearing Restrictions: should get a front wheeled walker, needs daily strengthening exercises Additional Instructions: Start the Augmentin this evening If you develops more than 3 liquid stools/day stop taking and follow up with her PCP Your urine sensitivities are still pending, if you do not get better ask your doctor to follow up with these to make sure that this is the right antibiotic Stay well hydrated - Follow Up Care Current Providers and Referrals: Miguel Ángel Merlos DO [Primary Care Provider] -
--- NOTE | 2018-06-18 14:34 | ASDISCHSUM ---
Discharge Information Plan Status:Assisted Living Medically Cleared to Leave:06/18/2018 Discharge Date:06/18/2018 CM D/C Disposition:Home Health Service ADT D/C [facility] Projected Discharge Date:06/18/2018 11:00 AM Transportation at D/C:Family Discharge Delay Reason: Follow-Up Date:06/18/2018 11:00 AM Discharge Slot: Final Diagnosis:UTI, dehydration Placement Information Referral Type:Assisted Living Residence Referral ID:[id number] Provider Name:[facility] Address 1:[address] [place] [address] Phone Number: Address 2: Fax Number: City:[place] Selection Factors: State:[place] Referral Type:*Home Health Care Services Referral ID:[id number] Provider Name:[facility] ([facility]) Address 1:[address] [address] Address 2: City:[place] Selection Factors: State:[place] Patient Contact Information Contact Name:ZELDA Relationship:Daughter Address:[address] Work Phone: City:[place] Alternate Phone: State/Zip Code:[place] [address] Email: Financial Information Financial Class:Medicare Advantage Plans Primary Plan Desc:[employer] Primary Plan Number:[id number] Secondary Plan Desc: Secondary Plan Number: Assessment Information [facility] CM Progress Note CM Note CM Note Notes: CM spoke with pt in the room and conducted chart review. Pt lives in assisted living at [facility] and is a . Pt admitted for UTI with encephalopaty and has a hx of the same. Pt's dtr Nicolle Little lives in [place] and is decision maker. Pt's son in law Orestes Solitario is in town and will be able to provide transport for pt. back to [facility]. Referral has been sent to [facility] and PT is pending at this time. Possible dc as early as tomorrow. CM to follow. D/C Plan: TBD Date Signed: 06/17/2018 12:26 PM Electronically Signed By:Alissa Pollack LACE LACE Length of stay for Answers: 2 days current admission Acuity / Level of Answers: No Care: Did the patient have an inpatient admission? # of Emergency department Answers: 3-4 visits in the last 6 months Social determinants Answers: Mental health diagnosis (anxiety, depression, pers onality disorders, etc.) Score: 8 Date Signed: 06/18/2018 02:33 PM Electronically Signed By:Alissa Pollack Case Management Discharge Plan Note Case Management Discharge Discharge Order Complete? Answers: Yes Patient to Obtain Answers: Other Notes: [facility] Medications Transportation Arranged Answers: Family/Friends Faxed Final Orders Answers: Yes Agency/Facility Transfer Answers: Yes Report Printed & Faxed to Receiving Agency Family Notified Answers: Yes Notes: CM called Perry Solitario Discharge Comments Notes: Pt to discharge home to [facility]. CM spoke with ASHLEIGH Troy at [facility] and with Zuleika from [facility] and requested increased services, more frequent checks, monitoring of pt's fluid intake as pt has not been drinking enough and use of front wheeled walker for more stability. Woodrow stated that pt's coordinator would reassess pt for needs. No further CM needs noted at this time. Date Signed: 06/18/2018 02:31 PM Electronically Signed By:Alissa Pollack Intervention Information
--- NOTE | 2018-06-18 15:13 | GDS ---
[f rep st] DISCHARGE SUMMARY DISCHARGE DIAGNOSES: 1. Acute encephalopathy. 2. Urinary tract infection. 3. Hip pain with underlying osteoporosis. 4. Depression. 5. Dehydration. HISTORY OF PRESENT ILLNESS: Briefly, the patient is a 78-year-old female who resides at [facility]. 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 When her family found her, she was more confused than her baseline. In further discussion with the patient's daughter who lives in [place], the patient has had more difficulty with ambulation. She had broken her leg a while back and was essentially wheelchair-bound. She was supposed to get out of the wheelchair and start using a front-wheeled walker. She worked with Physical Therapy today. She was provided with the walker by a friend of the family. She will be discharged back to [facility] with Home Care following up with her. HOSPITAL COURSE: 1. Acute encephalopathy, resolved. She is alert and oriented. 2. Urinary tract infection. Sensitivities are pending. In the past, she has been pansensitive. Will discharge her on Augmentin for a few more days. 3. Hip pain with underlying osteoporosis. A CT scan showed no hip or pelvic fracture. 4. Depression, on Zoloft. 5. Dehydration, resolved with IV fluids. DISCHARGE CONDITION: Stable. Blood pressure is 119/68, heart rate is 77, respiratory rate is 16, O2 saturation on room air 95%, temperature is 36.6 Celsius. MEDICATIONS AT DISCHARGE: Please see the EMR. DISCHARGE INSTRUCTIONS: 1. To have her primary care doctor follow up with her urine sensitivities. 2. Stay well hydrated. 3. Start her Augmentin this evening. 4. If she develops more than 3 liquid stools a day, stop taking the antibiotics and follow up with her primary care provider. /[id number]/MODL MTDD
== END 2018-06-18 15:35 ==
LOC: EDUNIT# → F3E 22:35
PROVIDERS: ADMIT Internal Medicine; ATTEND Internal Medicine
DX: G93.49 Other encephalopathy (principal); N39.0 Urinary tract infection, site not specified; R31.9 Hematuria, unspecified; M53.3 Sacrococcygeal disorders, not elsewhere classified; M81.0 Age-related osteoporosis without current pathological fracture; E86.0 Dehydration; J42 Unspecified chronic bronchitis
CPT/HCPCS: 71045; 73502; 73700; 97161; 97166; G0378; J0696; J1650; 84484-ER; 96365